=== PATIENT | male | born 1985 | race Caucasian/White ===

== ENCOUNTER 2025-01-28 21:22 | Inpatient (IN) | payer OTHER, SELFPAY ==
--- NOTE | 2025-01-28 | ECG_ITS ---
Test Reason : od Blood Pressure : */* mmHG Vent. Rate : 65 BPM Atrial Rate : 65 BPM P-R Int : 146 ms QRS Dur : 86 ms QT Int : 456 ms P-R-T Axes : 29 -3 18 degrees QTcB Int : 474 ms Normal sinus rhythm Normal ECG No previous ECGs available Referred By: Generic ED Physician Electronically Signed By: ASHELY ESTEBAN MD
[2025-01-28 21:37] VITALS: BP 128/84; BP 97/61; PULSE 77; RESP 18; TEMP 37.1; O2SAT 95; O2SAT 97; BMI 27.0
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
--- NOTE | 2025-01-28 22:08 | PC.NURSE ---
allegedly client is on methadone and didnt receive his dose today will attempt to verfiy in am.
[2025-01-28 23:00] VITALS: BP 90/46; PULSE 70; RESP 16; O2SAT 93
[2025-01-28 23:02] LABS: MANUAL DIFF FLAG NO
[2025-01-28 23:03] VITALS: BP 102/47; PULSE 65; RESP 10; TEMP 36.5; O2SAT 94
[2025-01-28 23:04] LABS: Basophils Absolute Auto 0.1 X10*3/uL (0.0-0.2); Basophils Percent Auto 1.1 % (0-2); Eosinophils Absolute Auto 0.4 X10*3/uL (0.0-0.4); Eosinophils Percent Auto 4.6 % (0-4); Hematocrit 34.5 % (42.0-52.0); Hemoglobin 11.5 g/dl (14.0-18.0); Imm Gran Abs Auto 0.02 X10*3/uL (0.00-0.03); Imm Gran Pct Auto 0.2 % (0.0-0.4); Lymphocytes Absolute Auto 4.1 X10*3/uL (1.2-4.9); Lymphocytes Percent Auto 48.4 % (20-40); Mean Corpuscular HGB Conc 33.3 g/dl (31.0-36.0); Mean Corpuscular Hemoglobin 29.3 pg (27.0-33.0); Mean Platelet Volume 8.2 fL (9.4-12.4); Monocytes Absolute Auto 0.6 X10*3/uL (0.1-1.2); Monocytes Percent Auto 7.6 % (2-11); Neutrophils Absolute Auto 3.2 x10*3/uL (2.0-8.3); Neutrophils Percent Auto 38.1 % (45-73); Platelet Count 336 X10*3/uL (160-400); Red Blood Count 3.92 X10*6/uL (4.60-5.80); Red Cell Distribution Width 14.6 % (11.0-16.0); White Blood Count 8.4 X10*3/uL (4.8-10.8)
--- NOTE | 2025-01-28 23:12 | PC.NURSE ---
Took over care from RN Lucía, pt brought over from the Pod, due to being lethargic. pt placed on bedside monitor. pt alert and able to respond to questions appropriately .
[2025-01-28 23:13] LABS: Amphetamine Screen Urine Not Detected (Not Detect); Barbiturates, Urine Not Detected (Not Detect); Benzodiazepines Screen Urine Not Detected (Not Detect); Buprenorphine Scr Not Detected (Not Detect); Cannabinoid Screen Urine Not Detected (Not Detect); Cocaine Screen Urine POSITIVE (Not Detect); Fentanyl, urine POSITIVE (Not Detect); Methadone Screen, Urine Positive (Not Detect); Opiate Screen Urine POSITIVE (Not Detect); Oxycodone Screen Urine Not Detected (Not Detect); Phencyclidine Screen Urine Not Detected (Not Detect)
[2025-01-28 23:16] LABS: Acetaminophen LAB < 3 mcg/mL (<30); Salicylate < 5.0 mg/dL (15-30)
[2025-01-28 23:17] LABS: Alanine Aminotransferase 37 U/L (0-40); Albumin Level 3.5 g/dL (3.5-5.0); Alkaline Phosphatase 79 U/L (39-117); Anion Gap 14 (12-20); Aspartate Amino Transferase 52 U/L (5-37); Bilirubin Total 0.5 mg/dL (0.0-1.0); Blood Urea Nitrogen 24 mg/dL (9-16); Calcium 8.1 mg/dL (8.4-10.2); Carbon Dioxide 23 mmol/L (22-29); Chloride 100 mmol/L (96-108); Creatinine Clr Calc Pharmacy 114.7; Estimated Glomerular Filt Rate > 60; Ethanol 15 mg/dL; Glucose Random 120 mg/dL (60-115); Potassium 3.7 mmol/L (3.3-5.1); Sodium 133 mmol/L (135-145); Total Protein 8.6 g/dL (6.5-8.0)
[2025-01-29] VITALS (9 sets, daily range): BP systolic 90–154; BP diastolic 53–88; PULSE 58–90; RESP 10–18; TEMP 36.3–36.8; O2SAT 94–98; BMI 27.1
--- NOTE | 2025-01-29 00:28 | PC.NURSE ---
blood pressure 88/[address] Juliana thakur, no new orders.
--- NOTE | 2025-01-29 01:24 | PC.NURSE ---
pt sleeping at this time.
--- NOTE | 2025-01-29 03:25 | PC.NURSE ---
pt is sleeping, pt still has a low bp, provider aware no new changes at this time.
--- NOTE | 2025-01-29 06:18 | PC.NURSE ---
pt blood pressure improved, pt a&o, pt taken back to pod by security.
--- NOTE | 2025-01-29 07:14 | HE.PHANOTE ---
METHADONE CONFIRMATION FORM PATIENT TAKES METHADONE 110 MG PO DAILY FROM [facility]. LAST DOSE ON 01/27 @ 0800
[2025-01-29] MEDS: methADONE HCl 20 MG/2 ML ORAL.CONC 110 MG PO (09:20)
--- NOTE | 2025-01-29 10:41 | MHC.CARE ---
[facility]
--- NOTE | 2025-01-29 10:45 | PC.NURSE ---
Pt ambulatory to restroom
--- NOTE | 2025-01-29 12:53 | PC.NURSE ---
Pt requesting his medication, unable to provide list, RN will call [facility].
[2025-01-29 13:23] LABS: Appearance Urine Clear; Color Urine Yellow; Glucose Urine UA Negative (Negative); Leukocyte Esterase Urine Negative (Negative); Nitrite Urine Negative (Negative); PH 5.5 (5.0-9.0); Urine Blood Negative (Negative); Urine Ketones Negative (Negative); Urine Protein Negative (Neg-Trace)
--- NOTE | 2025-01-29 14:21 | PC.NURSE ---
Medication list verified with [facility], Dr Hickey notified via [facility].
[2025-01-29] MEDS: Nicotine Polacrilex 2 MG GUM 4 MG BUCCAL (14:39)
[2025-01-29] MEDS: LORazepam 1 MG TABLET PO ×2 (14:39→19:09)
[2025-01-29] MEDS: Acetaminophen 325 MG TABLET 650 MG PO ×2 (14:39→20:42)
[2025-01-29] MEDS: Folic Acid 1 MG TABLET PO (14:40)
[2025-01-29] MEDS: Thiamine HCL 100 MG TABLET PO (14:40)
--- NOTE | 2025-01-29 14:53 | PC.NURSE ---
Report to EN[facility] Vargas on M[facility].
[2025-01-29] MEDS: LORazepam 1 MG TABLET 2 MG PO ×2 (17:01→21:13)
--- NOTE | 2025-01-29 18:49 | PC.ADMIT ---
Mark is a 39 yr old male admitted to today on a CV. He was brought to the ED, by ambulance, after overdosing on fentanyl & crack/cocaine.? Mark admits that his overdose was a suicide attempt.? He currently is endorsing SI but states he feels safe here & wants help. Mark is able to contract for safety.? He reports taking all his medications as prescribed. Mark rates both his anxiety & depression 09/05. Pt reports drinking up to a gallon of vodka per day.? Mark endorses past trauma?but doesn?t want to discuss it at this time.? He denies HI/AVH.? Skin check done, he has many old scars & multiple random small, non-draining, sores on different parts of his body (see skin assessment).? He reports that he lives alone & recently started renting a new room, which he is unhappy with. He is feeling generally unwell and is getting prn Ativan per CIWA scores. ? Mark? was oriented to the unit & placed on 15min safety checks.
[2025-01-29] MEDS: cloNIDine HCL 0.1 MG TABLET PO (21:13)
[2025-01-29] MEDS: Gabapentin 600 MG TABLET PO (21:13)
[2025-01-29] MEDS: hydrOXYzine HCL 25 MG TABLET PO (21:13)
[2025-01-30] VITALS (8 sets, daily range): BP systolic 111–121; BP diastolic 65–89; PULSE 77–113; RESP 14–16; TEMP 36.4–36.6; O2SAT 94–96; BMI 25.4
[2025-01-30] MEDS: LORazepam 1 MG TABLET 2 MG PO ×5 (03:41→19:31)
[2025-01-30] MEDS: Levothyroxine Sodium 100 MCG TABLET PO (06:50)
[2025-01-30] MEDS: methADONE HCl 20 MG/2 ML ORAL.CONC 110 MG PO (07:56)
[2025-01-30] MEDS: Gabapentin 600 MG TABLET PO ×3 (08:47→20:35)
[2025-01-30] MEDS: Thiamine HCL 100 MG TABLET PO (08:47)
[2025-01-30] MEDS: OXcarbazepine 300 MG TABLET PO ×2 (08:47→20:34)
[2025-01-30] MEDS: Folic Acid 1 MG TABLET PO (08:47)
[2025-01-30] MEDS: buPROPion HCl XL 150 MG TAB.ER.24H PO (08:47)
[2025-01-30] MEDS: Emtricitabin/Tenofovir DF 200/300 TABLET 1 TAB PO (08:48)
[2025-01-30] MEDS: Nicotine 21 MG PATCH.TD24 TRANSDERMA (08:55)
[2025-01-30] MEDS: Dicyclomine HCl 10 MG CAPSULE 20 MG PO ×3 (08:55→20:43)
[2025-01-30] MEDS: Acetaminophen 325 MG TABLET 650 MG PO ×3 (08:55→20:43)
[2025-01-30] MEDS: Nicotine Polacrilex 2 MG GUM 4 MG BUCCAL ×3 (08:56→19:34)
[2025-01-30] MEDS: hydrOXYzine HCL 25 MG TABLET PO ×2 (09:39→20:34)
[2025-01-30] MEDS: diazePAM 5 MG TABLET 10 MG PO ×3 (10:04→20:35)
[2025-01-30] MEDS: cloNIDine HCL 0.1 MG TABLET PO ×2 (11:04→20:35)
--- NOTE | 2025-01-30 12:34 | MHC.RECOVRN ---
Received Addiction Medicine consult for opiate withdrawal. Pt currently receiving 110 mg methadone daily. Spoke with provider, requested COWS to evaluate for withdrawal symptoms.
--- NOTE | 2025-01-30 13:02 | MHC.RECOVRN ---
Met with pt, along with pts RN, in 511-2. Pt laying in bed, eyes closed, wakes to voice. Eyelids appear heavy at times but pt is able to engage in conversation. Pt reports using alcohol, 1/2 gallon [place] vodka daily. Reports history of withdrawal seizure, timeline unclear regarding when last seizure occurred. Pt reports he has been hospitalized in the past for alcohol withdrawal, in addition to ATS admissions. Pt reports opiate use, heroin/fentanyl, 4 grams daily, IV. Pt reports using cociane when it's around, INH and IN. Pt currently goes to [facility] for methadone, on 110 mg daily. Pt reports he has been on 110 mg for a short time as he is titrating. Pt reports he feels withdrawal is more alcohol than opiate. Pt does appear to have more alcohol withdrawal symptoms than opioid withdrawal symptoms. Pt currently receiving medications to manage withdrawal including Valium, lorazepam, Bentyl, hydroxyzine, and clonidine. Pts CIWA scores today have been 13 and 12 with medication. Pt concerned regarding being kicked out, reassured pt. Pt denies questions or concerns at this time. Discussed with RN and provider, recommend speaking with hospitalist if CIWA scores remain indicative of moderate to severe withdrawal.
--- NOTE | 2025-01-30 13:11 | MHC.RECOVRN ---
AUDIT-C Brief Intervention Pt had positive screen for unhealthy alcohol use on admission. Attempted to meet with pt to discuss alcohol use and offer resources, pt declined.
--- NOTE | 2025-01-30 13:23 | P.HPPS_ITS ---
HPI Date of Service: 01/30/25 Chief Complaint: depressed/ SI Sources of Information: patient interviewed, chart reviewed and crisis/core team assessment reviewed Additional Sources of Information: Seen 10:15am 01/30/25 HPI Subjective Notes: Lin Warning and Conditional Voluntary Healthcare Proxy: No Guardianship: No Medical Problems Affecting Mental Status: No Narrative: 39 yo male, history of PTSD, depression, opiate use disorder on methadone, alcohol use disorder, cocaine use disorder, to ER from [facility] via EMS. Pt had an OD of fentanyl requiring Narcan and use of crack prior to admit. He endorsed SI to crisis. Today, he is in very active withdrawal and is a poor historian. He asks for Ritalin or Adderall. Reports drinking 1/2-1 gallon of vodka daily for over 3 years, other substance amounts vary. Pt attends [facility] for methadone. Pt endorses SI but reports he wants help and states he feels safe on the unit. Addiction consult and hospitalist consult for need for phenobarbital detox were placed. Past Psychiatric History: IP: Affirms OP: No current alliances Trials: Wellbutrin, Ritalin, Adderall, Gabapentin, Hydroxyzine Medical Evaluation Reviewed: Yes [facility] Medical History (Updated 01/31/25 @ 05:04 by Isabel Mcintyre, COAT FINISHER) Opioid use disorder, severe, on maintenance therapy Alcohol use disorder, severe, dependence Recurrent major depression PTSD (post-traumatic stress disorder) Family History: Addiction, Mental Health Social History: Born in [place]. Only child. Raised by grandmother. He did not completed GED or high school Never , no children. Denies current employment Substance History: Tox positive for Methadone, Fentanyl, Cocaine, Reports use since adolescence. Hx of multiple interventions, including in pt, rehab Hx of [place] 35 Trauma History: affirms, in childhood Diagnostics Vital Signs (24Hr): Vital Signs - 24 hr 01/29/25 15:31 01/29/25 18:38 01/29/25 19:54 Temperature 98.2 F 98 F 98.1 F Pulse Rate 62 58 73 Respiratory Rate 18 16 Blood Pressure 107/63 102/63 97/55 L Pulse Oximetry 94 98 97 Oxygen Delivery Method Room Air Room Air Room Air 01/30/25 03:39 01/30/25 08:00 01/30/25 08:49 Temperature 97.6 F Pulse Rate 82 113 H 77 Respiratory Rate 16 14 Blood Pressure 119/82 116/75 111/67 Pulse Oximetry 94 Oxygen Delivery Method Room Air Room Air 01/30/25 11:04 01/30/25 12:38 Temperature 98 F Pulse Rate 86 Respiratory Rate 14 Blood Pressure 115/65 115/65 Pulse Oximetry 96 Oxygen Delivery Method Room Air BMI result Body Mass Index 25.4 Labs 01/28/25 22:54 01/28/25 22:54 Labs: Laboratory Results - last 48 hr 01/28/25 01/28/25 22:54 22:55 WBC 8.4 RBC 3.92 L Hgb 11.5 L Hct 34.5 L MCV 88.0 MCH 29.3 MCHC 33.3 RDW 14.6 Plt Count 336 MPV 8.2 L Immature Gran % (Auto) 0.2 Neut % (Auto) 38.1 L Lymph % (Auto) 48.4 H [place] % (Auto) 7.6 Eos % (Auto) 4.6 H Baso % (Auto) 1.1 Lymph # (Auto) 4.1 [place] # (Auto) 0.6 Eos # (Auto) 0.4 Baso # (Auto) 0.1 Abs Immat Gran (auto) 0.02 Absolute Neuts (auto) 3.2 Absolute Nucleated RBC 0.000 Nucleated RBC % (auto) 0.0 Sodium 133 L Potassium 3.7 Chloride 100 Carbon Dioxide 23 Anion Gap 14 BUN 24 H Creatinine 0.78 Estim Creat Clear Calc 114.7 Estimated GFR > 60 Random Glucose 120 H Calcium 8.1 L Total Bilirubin 0.5 AST 52 H ALT 37 Alkaline Phosphatase 79 Total Protein 8.6 H Albumin 3.5 Urine Color Yellow Urine Appearance Clear Urine pH 5.5 Ur Specific [place] 1.010 Urine Protein Negative Urine Glucose (UA) Negative Urine Ketones Negative Urine Blood Negative Urine Nitrite Negative Ur Leukocyte Esterase Negative Salicylates < 5.0 L Urine Opiates Screen POSITIVE H Ur Buprenorphine Scrn Not Detected Ur Oxycodone Screen Not Detected Urine Methadone Screen Positive H Urine Fentanyl Screen POSITIVE H Acetaminophen < 3 Ur Barbiturates Screen Not Detected Ur Phencyclidine Scrn Not Detected Ur Amphetamines Screen Not Detected U Benzodiazepines Scrn Not Detected Urine Cocaine Screen POSITIVE H U Marijuana (THC) Screen Not Detected Ethyl Alcohol 15 Meds/Allergies Meds Home Medications ?Medication ?Instructions ?Recorded ?Confirmed ?Type baclofen 10 mg tablet 10 mg PO 3XD PRN Pain 01/29/25 01/29/25 History bupropion HCl 150 mg 24 hr tablet, 150 mg PO DAILY 01/29/25 01/29/25 History extended release clonidine HCl 0.1 mg tablet 0.1 mg PO BID PRN Insomnia 01/29/25 01/29/25 History dicyclomine 20 mg tablet 20 mg PO BID PRN Diarrhea 01/29/25 01/29/25 History emtricitabine 200 mg-tenofovir 1 tab PO DAILY 01/29/25 01/29/25 History disoproxil fumarate 300 mg tablet gabapentin 600 mg tablet 600 mg PO 3XD PRN Pain 01/29/25 01/29/25 History hydroxyzine HCl 25 mg tablet 25 mg PO BID PRN Anxiety 01/29/25 01/29/25 History ibuprofen 600 mg tablet 600 mg PO 3XD PRN Pain 01/29/25 01/29/25 History levothyroxine 100 mcg tablet 100 mcg PO DAILY 01/29/25 01/29/25 History methadone 110 mg PO DAILY 01/29/25 01/29/25 History nicotine (polacrilex) 4 mg gum 4 mg PO QID PRN Nicotine Cravings 01/29/25 01/29/25 History oxcarbazepine 300 mg tablet 300 mg PO BID 01/29/25 01/29/25 History quetiapine 50 mg tablet 50 mg PO BEDTIME PRN Insomnia 01/29/25 01/29/25 History Allergies Allergies Allergy/AdvReac Type Severity Reaction Status Date / Time No Known Allergies Allergy Verified 01/28/25 21:46 Mental Status Exam Mental Status Exam Patient Appearance: Fatigued and Disheveled Patient Orientation: Person, Place and Situation Level of Consciousness: Sedated and Lethargic Patient Behavior: Guarded, Sedated, Fatigued, Distractible, Isolative and Poor Eye Contact Mood Description: Withdrawn Affect Description: Withdrawn Patient Cognition Impaired: No Ability to Follow Directions: Fair Speech Pattern: Spontaneous Speech Memory Description: Remote Impaired Hallucinations: None Delusions: Not Present Perceptual Disturbances: Depersonalization and Derealization Thought Process: Slowed Thinking Thought Content: positive for Slowed Thinking, positive for Tangential and positive for Suicidal Ideation Depressive Symptoms: Hopelessness, Unhappiness and Thoughts of /Suicide Judgement: Fair Assessment & Plan Assessment & Plan (1) PTSD (post-traumatic stress disorder): Status: Acute Code(s): F43.10 - Post-traumatic stress disorder, unspecified (2) Recurrent major depression: Status: Acute Code(s): F33.9 - Major depressive disorder, recurrent, unspecified (3) Alcohol use disorder, severe, dependence: Status: Acute Code(s): F10.20 - Alcohol dependence, uncomplicated (4) Opioid use disorder, severe, on maintenance therapy: Status: Acute Code(s): F11.20 - Opioid dependence, uncomplicated Plan Admit, CV, 15 minute checks Hospitalist consult-?need for phenobarbital protocol for withdrawal from alcohol Addiction Consult Valium 10 mg tid Ativan 1-3 mg q2 prn alcohol withdrawal BMP, B12,Folate, FBS, TSH, Lipid Panel, A1C Collateral contact Diagnostics as above and prn Encourage full milieu Discharge planning Patient educated on: medication risk/benefits, substance abuse, therapeutic strategies and medical condition Reason for continued inpatient stay Substantial Risk for: med/psych decompensation Statement Statement: I have reviewed the history and physical and performed a pertinent examination on my patient. No changes have occurred unless specified. If the History and Physical was not performed prior to admission, the Hospitalist's service will be consulted for completing the admission physical. Time Spent With Patient Time: Total time managing care of this patient today ____ minutes.
[2025-01-30] MEDS: Milk of Magnesia 30 ML ORAL.SUSP PO (16:06)
[2025-01-31] VITALS: PULSE 85
[2025-01-31] MEDS: LORazepam 1 MG TABLET 2 MG PO ×2 (00:10→13:10)
[2025-01-31 08:00] VITALS: PULSE 80
[2025-01-31] MEDS: methADONE HCl 20 MG/2 ML ORAL.CONC 110 MG PO (08:09)
[2025-01-31 08:42] VITALS: BP 109/63; PULSE 80; RESP 16; TEMP 36.4; O2SAT 95
[2025-01-31] MEDS: OXcarbazepine 300 MG TABLET PO ×2 (08:54→21:02)
[2025-01-31] MEDS: Emtricitabin/Tenofovir DF 200/300 TABLET 1 TAB PO (08:54)
[2025-01-31] MEDS: Gabapentin 600 MG TABLET PO ×3 (08:54→21:02)
[2025-01-31] MEDS: Levothyroxine Sodium 100 MCG TABLET PO (08:54)
[2025-01-31] MEDS: diazePAM 5 MG TABLET 10 MG PO (08:54)
[2025-01-31] MEDS: buPROPion HCl XL 150 MG TAB.ER.24H PO (08:54)
[2025-01-31] MEDS: Thiamine HCL 100 MG TABLET PO (08:54)
[2025-01-31] MEDS: Folic Acid 1 MG TABLET PO (08:54)
[2025-01-31] MEDS: LORazepam 1 MG TABLET PO ×3 (08:56→21:02)
[2025-01-31] MEDS: Nicotine 21 MG PATCH.TD24 TRANSDERMA (09:36)
[2025-01-31] MEDS: Nicotine Polacrilex 2 MG GUM 4 MG BUCCAL ×2 (09:38→22:01)
[2025-01-31] MEDS: Dicyclomine HCl 10 MG CAPSULE 20 MG PO ×2 (09:44→16:46)
[2025-01-31] MEDS: Baclofen 10 MG TABLET PO ×2 (09:44→16:46)
[2025-01-31 11:20] VITALS: BP 105/67
[2025-01-31] MEDS: OLANZapine 5 MG TABLET PO ×2 (11:20→22:02)
[2025-01-31] MEDS: cloNIDine HCL 0.1 MG TABLET PO ×2 (11:20→22:01)
--- NOTE | 2025-01-31 11:28 | PM.EVENT ---
Event Note Date of Service: 01/31/25 Event Note: Pt is a 39-year-old male H significant for polysubstance use disorder, alcohol use disorder, and anxiety who was admitted to [facility] Psychiatric unit for increased anxiety with SI. Hospitalist consult for evaluation of alcohol withdrawal. Pt seen and evaluated where he endorses increased anxiety, photophobia, nausea, headache, tactile disturbances, diaphoresis, and tremors. Reports has been drinking 0.5 gal of vodka daily with last drink a few days ago. Reports hx of withdrawal seizures. Physical exam more benign. Initially pt has minor tremors of upper extremities when holding his hands outstretched. However, no tremors appreciated when testing for upper extremity strength and [id number] coordination. Pt does not appear diaphoretic or anxious. pt instead appears somnolent though arousable and answering questions appropriately. Given clinical picture, would not suggest switching pt to phenobarb protocol, as Ativan is also first-line monotherapy for treating alcohol withdrawal. If anything, pt appears overly sedated and would suggest continuing Ativan taper. If possible, would avoid additional Ativan doses due to somnolence and concern for over sedation. Time Spent With Patient Time: Total time managing care of this patient today ____ minutes.
--- NOTE | 2025-01-31 14:01 | MHC.RECOVRN ---
Pt originally seen by t/w for consult for opiate withdrawal. Pt had not been exhibiting opiate withdrawal, rather more alcohol withdrawal when seen by t/w on 01/30. Pt seen by hospitalist today for elevated CIWA scores. Recommendation to continue Ativan taper. Addiction signing off at this time. Please reconsult if needed.
[2025-01-31] MEDS: diazePAM 5 MG TABLET 15 MG PO ×2 (15:10→21:03)
--- NOTE | 2025-01-31 15:46 | HO.PSYCHPN ---
Subjective Subjective Date of Service: 01/31/25 Reason For Visit: depressed/ SI Subjective Notes: Conditional Voluntary Healthcare Proxy: No Guardianship: No Medical Problems Affecting Mental Status: No Interim History: Detox progressing. Sedate today. Sleeping when interview attempted. Team reports detox is progressing well, pt is med seeking at times. As a result with begin to decrease. Decrease of Valium 20 to 15 tid and decrease of prn Ativan Medication Compliance: Yes Side effects from medications: No Attending Groups: No Review of Systems Acute medical concerns: No Medical Review of Systems: unchanged Review of Systems Review of Systems detox progressing Mental Status Exam Mental Status Exam Patient Behavior: Asleep Diagnostics Vital Signs (24Hr): Vital Signs - 24 hr 01/30/25 16:02 01/30/25 20:00 01/30/25 20:35 Temperature 97.9 F 98 F Pulse Rate 98 92 Respiratory Rate 16 16 Blood Pressure 115/65 121/65 120/89 Pulse Oximetry 96 96 Oxygen Delivery Method Room Air Room Air 01/31/25 08:42 01/31/25 11:20 Temperature 97.6 F Pulse Rate 80 Respiratory Rate 16 Blood Pressure 109/63 105/67 Pulse Oximetry 95 Oxygen Delivery Method Room Air BMI result Body Mass Index 25.4 Labs 01/28/25 22:54 01/28/25 22:54 Medications Medications Current Medications Acetaminophen (Acetaminophen 325 Mg Tablet) 650 mg PO Q6H PRN PRN Reason: Headache/Pain, Scale 1-10 Last Admin: 01/30/25 20:43 Dose: 650 mg Al Hydroxide/Mg Hydroxide (Magnesium Hydrox/Alum Hydrox 30 Ml Oral.Susp) 30 ml PO Q6H PRN PRN Reason: Heartburn/Nausea Baclofen (Baclofen 10 Mg Tablet) 10 mg PO TID PRN PRN Reason: withdrawal discomfort Last Admin: 01/31/25 09:44 Dose: 10 mg Bupropion HCl (Bupropion Hcl Xl 150 Mg Tab.Er.24h) 150 mg PO DAILY [facility] Last Admin: 01/31/25 08:54 Dose: 150 mg Clonidine HCl (Clonidine Hcl 0.1 Mg Tablet) 0.1 mg PO BID PRN; Protocol PRN Reason: Withdrawal Last Admin: 01/31/25 11:20 Dose: 0.1 mg Diazepam (Diazepam 5 Mg Tablet) 15 mg PO TID [facility] Last Admin: 01/31/25 15:10 Dose: 15 mg Dicyclomine HCl (Dicyclomine Hcl 10 Mg Capsule) 20 mg PO BID PRN PRN Reason: Diarrhea Last Admin: 01/31/25 09:44 Dose: 20 mg Emtricitabine/Tenofovir (Emtricitabin/Tenofovir Df 200/300 Tablet) 1 tab PO DAILY [facility] Last Admin: 01/31/25 08:54 Dose: 1 tab Folic Acid (Folic Acid 1 Mg Tablet) 1 mg PO DAILY [facility] Last Admin: 01/31/25 08:54 Dose: 1 mg Gabapentin (Gabapentin 600 Mg Tablet) 600 mg PO TID [facility] Last Admin: 01/31/25 15:11 Dose: 600 mg Hydroxyzine HCl (Hydroxyzine Hcl 25 Mg Tablet) 25 mg PO Q6H PRN PRN Reason: mild anxiety Last Admin: 01/30/25 20:34 Dose: 25 mg Levothyroxine Sodium (Levothyroxine Sodium 100 Mcg Tablet) 100 mcg PO DAILY@0600 [facility] Last Admin: 01/31/25 08:54 Dose: 100 mcg Magnesium Hydroxide (Milk Of Magnesia 30 Ml Oral.Susp) 30 ml PO DAILY PRN PRN Reason: Constipation Last Admin: 01/30/25 16:06 Dose: 30 ml Methadone HCl (Methadone Hcl 20 Mg/2 Ml Oral.Conc) 110 mg PO DAILY@0800 [facility] Last Admin: 01/31/25 08:09 Dose: 110 mg Nicotine (Nicotine 21 Mg Patch.Td24) 21 mg TRANSDERMA DAILY PRN PRN Reason: smoking cessation Last Admin: 01/31/25 09:36 Dose: 21 mg Nicotine Polacrilex (Nicotine Polacrilex 2 Mg Gum) 4 mg BUCCAL Q2H PRN PRN Reason: Nicotine Cravings Last Admin: 01/31/25 09:38 Dose: 4 mg Olanzapine (Olanzapine 5 Mg Tablet) 5 mg PO TID PRN PRN Reason: agitation Last Admin: 01/31/25 11:20 Dose: 5 mg Oxcarbazepine (Oxcarbazepine 300 Mg Tablet) 300 mg PO BID [facility] Last Admin: 01/31/25 08:54 Dose: 300 mg Quetiapine Fumarate (Quetiapine Fumarate 50 Mg Tablet) 50 mg PO BEDTIME PRN PRN Reason: Insomnia Thiamine HCl (Thiamine Hcl 100 Mg Tablet) 100 mg PO DAILY [facility] Last Admin: 01/31/25 08:54 Dose: 100 mg Trazodone HCl (Trazodone Hcl 50 Mg Tablet) 50 mg PO BEDTIME MRX1 PRN PRN Reason: Insomnia Allergies Allergies Allergy/AdvReac Type Severity Reaction Status Date / Time No Known Allergies Allergy Verified 01/28/25 21:46 Assessment & Plan Assessment & Plan (1) PTSD (post-traumatic stress disorder): Status: Acute Code(s): F43.10 - Post-traumatic stress disorder, unspecified (2) Recurrent major depression: Status: Acute Code(s): F33.9 - Major depressive disorder, recurrent, unspecified (3) Alcohol use disorder, severe, dependence: Status: Acute Code(s): F10.20 - Alcohol dependence, uncomplicated (4) Opioid use disorder, severe, on maintenance therapy: Status: Acute Code(s): F11.20 - Opioid dependence, uncomplicated Plan Admit, CV, 15 minute checks Hospitalist consult-?need for phenobarbital protocol for withdrawal from alcohol Addiction Consult Valium 10 mg tid Ativan 1-3 mg q2 prn alcohol withdrawal BMP, B12,Folate, FBS, TSH, Lipid Panel, A1C Collateral contact Diagnostics as above and prn Encourage full milieu Discharge planning Valium decrease from 20 mg tid to 15 mg tid Ativan prn decrease to 1 mg q 4h prn withdrawal sx. Reason for continued inpatient stay Substantial Risk for: med/psych decompensation Time Spent With Patient Time: Total time managing care of this patient today ____ minutes.
[2025-01-31 16:00] VITALS: PULSE 72
[2025-01-31] MEDS: Acetaminophen 325 MG TABLET 650 MG PO (16:46)
[2025-01-31] MEDS: hydrOXYzine HCL 25 MG TABLET PO (16:46)
[2025-01-31 22:01] VITALS: BP 115/71
[2025-01-31] MEDS: QUEtiapine Fumarate 50 MG TABLET PO (22:02)
[2025-02-01] VITALS: PULSE 68
--- NOTE | 2025-02-01 06:22 | PC.NURSE ---
Patient approached this technical publications writer shortly after 2200 and claimed he had not received his HS Valium 15 mg po. This technical publications writer showed patient the medication had been scanned and was given along with his other HS medications. Patient finally decided he had taken them. May need to monitor meds with two RN's.
[2025-02-01 08:00] VITALS: PULSE 108; O2SAT 98
[2025-02-01] MEDS: methADONE HCl 20 MG/2 ML ORAL.CONC 110 MG PO (08:00)
[2025-02-01] MEDS: buPROPion HCl XL 150 MG TAB.ER.24H PO (08:25)
[2025-02-01] MEDS: Emtricitabin/Tenofovir DF 200/300 TABLET 1 TAB PO (08:26)
[2025-02-01] MEDS: Levothyroxine Sodium 100 MCG TABLET PO (08:26)
[2025-02-01] MEDS: Gabapentin 600 MG TABLET PO ×3 (08:26→21:09)
[2025-02-01] MEDS: Thiamine HCL 100 MG TABLET PO (08:26)
[2025-02-01] MEDS: diazePAM 5 MG TABLET 15 MG PO (08:26)
[2025-02-01] MEDS: Folic Acid 1 MG TABLET PO (08:26)
[2025-02-01] MEDS: OXcarbazepine 300 MG TABLET PO ×2 (08:26→21:09)
--- NOTE | 2025-02-01 10:27 | P.PNPSI_ITS ---
Subjective Subjective Date of Service: 02/01/25 Reason For Visit: depressed/ SI Subjective Notes: Conditional Voluntary Interim History: Patient was seen and discussed in rounds today. Records and plans were reviewed. He continues to endorse depression, anxiety. He is doing well with his CIWA/COWS protocol. Because of question of possible Ativan seeking was put on Valium 15 mg t.i.d. but this morning he was extremely drowsy and some medications were held. I decrease the Valium to 10 mg t.i.d. / to be held if too drowsy. He also has been put on Suboxone. Review of Systems Review of Systems Drowsiness Yes Unobtainable due to mental status Mental Status Exam Mental Status Exam Narrative: in today's visit he is extremely drowsy and unable to be examined formally. Diagnostics Vital Signs (24Hr): Vital Signs - 24 hr 01/31/25 11:20 01/31/25 22:01 02/01/25 08:00 Pulse Rate 108 H Blood Pressure 105/67 115/71 Pulse Oximetry 98 Oxygen Delivery Method Room Air BMI result Body Mass Index 25.4 Labs 01/28/25 22:54 01/28/25 22:54 Medications Medications Current Medications Acetaminophen (Acetaminophen 325 Mg Tablet) 650 mg PO Q6H PRN PRN Reason: Headache/Pain, Scale 1-10 Last Admin: 01/31/25 16:46 Dose: 650 mg Al Hydroxide/Mg Hydroxide (Magnesium Hydrox/Alum Hydrox 30 Ml Oral.Susp) 30 ml PO Q6H PRN PRN Reason: Heartburn/Nausea Baclofen (Baclofen 10 Mg Tablet) 10 mg PO TID PRN PRN Reason: withdrawal discomfort Last Admin: 01/31/25 16:46 Dose: 10 mg Bupropion HCl (Bupropion Hcl Xl 150 Mg Tab.Er.24h) 150 mg PO DAILY [facility] Last Admin: 02/01/25 08:25 Dose: 150 mg Clonidine HCl (Clonidine Hcl 0.1 Mg Tablet) 0.1 mg PO BID PRN; Protocol PRN Reason: Withdrawal Last Admin: 01/31/25 22:01 Dose: 0.1 mg Diazepam (Diazepam 5 Mg Tablet) 15 mg PO TID [facility] Last Admin: 02/01/25 08:26 Dose: 15 mg Dicyclomine HCl (Dicyclomine Hcl 10 Mg Capsule) 20 mg PO BID PRN PRN Reason: Diarrhea Last Admin: 01/31/25 16:46 Dose: 20 mg Emtricitabine/Tenofovir (Emtricitabin/Tenofovir Df 200/300 Tablet) 1 tab PO DAILY [facility] Last Admin: 02/01/25 08:26 Dose: 1 tab Folic Acid (Folic Acid 1 Mg Tablet) 1 mg PO DAILY [facility] Last Admin: 02/01/25 08:26 Dose: 1 mg Gabapentin (Gabapentin 600 Mg Tablet) 600 mg PO TID [facility] Last Admin: 02/01/25 08:26 Dose: 600 mg Hydroxyzine HCl (Hydroxyzine Hcl 25 Mg Tablet) 25 mg PO Q6H PRN PRN Reason: mild anxiety Last Admin: 01/31/25 16:46 Dose: 25 mg Levothyroxine Sodium (Levothyroxine Sodium 100 Mcg Tablet) 100 mcg PO DAILY@0600 [facility] Last Admin: 02/01/25 08:26 Dose: 100 mcg Lorazepam (Lorazepam 1 Mg Tablet) 1 mg PO Q4H PRN PRN Reason: withdrawal sx Last Admin: 01/31/25 21:02 Dose: 1 mg Magnesium Hydroxide (Milk Of Magnesia 30 Ml Oral.Susp) 30 ml PO DAILY PRN PRN Reason: Constipation Last Admin: 01/30/25 16:06 Dose: 30 ml Methadone HCl (Methadone Hcl 20 Mg/2 Ml Oral.Conc) 110 mg PO DAILY@0800 [facility] Last Admin: 02/01/25 08:00 Dose: 110 mg Nicotine (Nicotine 21 Mg Patch.Td24) 21 mg TRANSDERMA DAILY PRN PRN Reason: smoking cessation Last Admin: 01/31/25 09:36 Dose: 21 mg Nicotine Polacrilex (Nicotine Polacrilex 2 Mg Gum) 4 mg BUCCAL Q2H PRN PRN Reason: Nicotine Cravings Last Admin: 01/31/25 22:01 Dose: 4 mg Olanzapine (Olanzapine 5 Mg Tablet) 5 mg PO TID PRN PRN Reason: agitation Last Admin: 01/31/25 22:02 Dose: 5 mg Oxcarbazepine (Oxcarbazepine 300 Mg Tablet) 300 mg PO BID [facility] Last Admin: 02/01/25 08:26 Dose: 300 mg Quetiapine Fumarate (Quetiapine Fumarate 50 Mg Tablet) 50 mg PO BEDTIME PRN PRN Reason: Insomnia Last Admin: 01/31/25 22:02 Dose: 50 mg Thiamine HCl (Thiamine Hcl 100 Mg Tablet) 100 mg PO DAILY [facility] Last Admin: 02/01/25 08:26 Dose: 100 mg Trazodone HCl (Trazodone Hcl 50 Mg Tablet) 50 mg PO BEDTIME MRX1 PRN PRN Reason: Insomnia Allergies Allergies Allergy/AdvReac Type Severity Reaction Status Date / Time No Known Allergies Allergy Verified 01/28/25 21:46 Assessment & Plan Assessment & Plan (1) PTSD (post-traumatic stress disorder): Status: Acute Code(s): F43.10 - Post-traumatic stress disorder, unspecified (2) Recurrent major depression: Status: Acute Code(s): F33.9 - Major depressive disorder, recurrent, unspecified (3) Alcohol use disorder, severe, dependence: Status: Acute Code(s): F10.20 - Alcohol dependence, uncomplicated (4) Opioid use disorder, severe, on maintenance therapy: Status: Acute Code(s): F11.20 - Opioid dependence, uncomplicated Plan Admit, CV, 15 minute checks Hospitalist consult-?need for phenobarbital protocol for withdrawal from alcohol Addiction Consult Valium 10 mg tid Ativan 1-3 mg q2 prn alcohol withdrawal BMP, B12,Folate, FBS, TSH, Lipid Panel, A1C Collateral contact Diagnostics as above and prn Encourage full milieu Discharge planning Valium decrease from 20 mg tid to 15 mg tid Ativan prn decrease to 1 mg q 4h prn withdrawal sx. 02/01/25: Continue current plans and regimen . Decrease Valium to 10 mg t.i.d. Patient educated on: medication risk/benefits Reason for continued inpatient stay Substantial Risk for: med/psych decompensation Time Spent With Patient Time: Total time managing care of this patient today ____ minutes.
[2025-02-01] MEDS: diazePAM 5 MG TABLET 10 MG PO ×2 (14:52→21:09)
[2025-02-01 15:45] LABS: Influenza A PCR NEGATIVE (Negative); Influenza B PCR NEGATIVE (Negative); Resp Syncy Virus RNA Qual PCR NEGATIVE (Negative); SARS COV2 PCR INHOUSE POSITIVE (Negative)
[2025-02-01 16:00] VITALS: PULSE 97
[2025-02-01] MEDS: LORazepam 1 MG TABLET PO ×2 (16:13→21:10)
[2025-02-01 18:28] VITALS: BP 116/78
[2025-02-01] MEDS: cloNIDine HCL 0.1 MG TABLET PO (18:28)
[2025-02-01 19:44] VITALS: BP 123/91; PULSE 99; RESP 16; TEMP 36.1; O2SAT 94
[2025-02-01] MEDS: Acetaminophen 325 MG TABLET 650 MG PO (21:09)
[2025-02-01] MEDS: Nicotine Polacrilex 2 MG GUM 4 MG BUCCAL (21:10)
[2025-02-02] VITALS: PULSE 82
[2025-02-02 08:21] VITALS: BP 111/77; PULSE 96; TEMP 36.2; O2SAT 94
[2025-02-02] MEDS: buPROPion HCl XL 150 MG TAB.ER.24H PO (08:30)
[2025-02-02] MEDS: OXcarbazepine 300 MG TABLET PO ×2 (08:30→21:10)
[2025-02-02] MEDS: Levothyroxine Sodium 100 MCG TABLET PO (08:30)
[2025-02-02] MEDS: Gabapentin 600 MG TABLET PO ×3 (08:30→21:10)
[2025-02-02] MEDS: Emtricitabin/Tenofovir DF 200/300 TABLET 1 TAB PO (08:30)
[2025-02-02] MEDS: Thiamine HCL 100 MG TABLET PO (08:31)
[2025-02-02] MEDS: Folic Acid 1 MG TABLET PO (08:31)
[2025-02-02] MEDS: methADONE HCl 20 MG/2 ML ORAL.CONC 110 MG PO (08:35)
[2025-02-02 08:45] VITALS: PULSE 96
[2025-02-02] MEDS: cloNIDine HCL 0.1 MG TABLET PO ×2 (08:56→23:08)
[2025-02-02] MEDS: Baclofen 10 MG TABLET PO ×2 (08:56→15:24)
[2025-02-02] MEDS: Acetaminophen 325 MG TABLET 650 MG PO ×3 (08:56→21:22)
[2025-02-02] MEDS: Nicotine 21 MG PATCH.TD24 TRANSDERMA (08:56)
--- NOTE | 2025-02-02 09:23 | HO.PSYCHPN ---
Subjective Subjective Date of Service: 02/02/25 Reason For Visit: depressed/ SI Subjective Notes: Conditional Voluntary Interim History: Patient was seen and discussed in rounds today. Records and plans were reviewed. He continues to endorse depression, anxiety. He is doing well with his CIWA/COWS protocol. He has tested positive for COVID. He is more alert today after the decrease of Valium to 10 mg. Continues to be disorganized. No behavioral issues. No SI.. Medication Compliance: Yes Side effects from medications: No Review of Systems Review of Systems Disorganized thinking Yes all other systems are reviewed and are negative Mental Status Exam Mental Status Exam Narrative: In today's visit he is drowsy, oriented to person and somewhat to place. Speech is soft-spoken. Moderate eye contact. Affect is constricted and subdued. No acute signs of psychosis. Denies AVH. No SI. Cognitively continues to be disorganized. Judgment is impaired. Diagnostics Vital Signs (24Hr): Vital Signs - 24 hr 02/01/25 18:28 02/01/25 19:44 02/02/25 08:21 Temperature 96.9 F 97.1 F Pulse Rate 99 96 Respiratory Rate 16 Blood Pressure 116/78 123/91 H 111/77 Pulse Oximetry 94 94 Oxygen Delivery Method Room Air Room Air BMI result Body Mass Index 25.4 Labs 01/28/25 22:54 01/28/25 22:54 Labs: Laboratory Results - last 48 hr 02/01/25 14:57 Influenza Type A (PCR) NEGATIVE Influenza Type B (PCR) NEGATIVE RSV RNA Qual (PCR) NEGATIVE SARS-CoV-2 RNA (RT-PCR) POSITIVE A Medications Medications Current Medications Acetaminophen (Acetaminophen 325 Mg Tablet) 650 mg PO Q6H PRN PRN Reason: Headache/Pain, Scale 1-10 Last Admin: 02/02/25 08:56 Dose: 650 mg Al Hydroxide/Mg Hydroxide (Magnesium Hydrox/Alum Hydrox 30 Ml Oral.Susp) 30 ml PO Q6H PRN PRN Reason: Heartburn/Nausea Baclofen (Baclofen 10 Mg Tablet) 10 mg PO TID PRN PRN Reason: withdrawal discomfort Last Admin: 02/02/25 08:56 Dose: 10 mg Bupropion HCl (Bupropion Hcl Xl 150 Mg Tab.Er.24h) 150 mg PO DAILY [facility] Last Admin: 02/02/25 08:30 Dose: 150 mg Clonidine HCl (Clonidine Hcl 0.1 Mg Tablet) 0.1 mg PO BID PRN; Protocol PRN Reason: Withdrawal Last Admin: 02/02/25 08:56 Dose: 0.1 mg Diazepam (Diazepam 5 Mg Tablet) 10 mg PO TID [facility] Last Admin: 02/01/25 21:09 Dose: 10 mg Dicyclomine HCl (Dicyclomine Hcl 10 Mg Capsule) 20 mg PO BID PRN PRN Reason: Diarrhea Last Admin: 01/31/25 16:46 Dose: 20 mg Emtricitabine/Tenofovir (Emtricitabin/Tenofovir Df 200/300 Tablet) 1 tab PO DAILY [facility] Last Admin: 02/02/25 08:30 Dose: 1 tab Folic Acid (Folic Acid 1 Mg Tablet) 1 mg PO DAILY [facility] Last Admin: 02/02/25 08:31 Dose: 1 mg Gabapentin (Gabapentin 600 Mg Tablet) 600 mg PO TID [facility] Last Admin: 02/02/25 08:30 Dose: 600 mg Hydroxyzine HCl (Hydroxyzine Hcl 25 Mg Tablet) 25 mg PO Q6H PRN PRN Reason: mild anxiety Last Admin: 01/31/25 16:46 Dose: 25 mg Levothyroxine Sodium (Levothyroxine Sodium 100 Mcg Tablet) 100 mcg PO DAILY@0600 [facility] Last Admin: 02/02/25 08:30 Dose: 100 mcg Lorazepam (Lorazepam 1 Mg Tablet) 1 mg PO Q4H PRN PRN Reason: withdrawal sx Last Admin: 02/01/25 21:10 Dose: 1 mg Magnesium Hydroxide (Milk Of Magnesia 30 Ml Oral.Susp) 30 ml PO DAILY PRN PRN Reason: Constipation Last Admin: 01/30/25 16:06 Dose: 30 ml Methadone HCl (Methadone Hcl 20 Mg/2 Ml Oral.Conc) 110 mg PO DAILY@0800 [facility] Last Admin: 02/02/25 08:35 Dose: 110 mg Nicotine (Nicotine 21 Mg Patch.Td24) 21 mg TRANSDERMA DAILY PRN PRN Reason: smoking cessation Last Admin: 02/02/25 08:56 Dose: 21 mg Nicotine Polacrilex (Nicotine Polacrilex 2 Mg Gum) 4 mg BUCCAL Q2H PRN PRN Reason: Nicotine Cravings Last Admin: 02/01/25 21:10 Dose: 4 mg Olanzapine (Olanzapine 5 Mg Tablet) 5 mg PO TID PRN PRN Reason: agitation Last Admin: 01/31/25 22:02 Dose: 5 mg Oxcarbazepine (Oxcarbazepine 300 Mg Tablet) 300 mg PO BID [facility] Last Admin: 02/02/25 08:30 Dose: 300 mg Quetiapine Fumarate (Quetiapine Fumarate 50 Mg Tablet) 50 mg PO BEDTIME PRN PRN Reason: Insomnia Last Admin: 01/31/25 22:02 Dose: 50 mg Thiamine HCl (Thiamine Hcl 100 Mg Tablet) 100 mg PO DAILY [facility] Last Admin: 02/02/25 08:31 Dose: 100 mg Trazodone HCl (Trazodone Hcl 50 Mg Tablet) 50 mg PO BEDTIME MRX1 PRN PRN Reason: Insomnia Allergies Allergies Allergy/AdvReac Type Severity Reaction Status Date / Time No Known Allergies Allergy Verified 01/28/25 21:46 Assessment & Plan Assessment & Plan (1) PTSD (post-traumatic stress disorder): Status: Acute Code(s): F43.10 - Post-traumatic stress disorder, unspecified (2) Recurrent major depression: Status: Acute Code(s): F33.9 - Major depressive disorder, recurrent, unspecified (3) Alcohol use disorder, severe, dependence: Status: Acute Code(s): F10.20 - Alcohol dependence, uncomplicated (4) Opioid use disorder, severe, on maintenance therapy: Status: Acute Code(s): F11.20 - Opioid dependence, uncomplicated Plan Admit, CV, 15 minute checks Hospitalist consult-?need for phenobarbital protocol for withdrawal from alcohol Addiction Consult Valium 10 mg tid Ativan 1-3 mg q2 prn alcohol withdrawal BMP, B12,Folate, FBS, TSH, Lipid Panel, A1C Collateral contact Diagnostics as above and prn Encourage full milieu Discharge planning Valium decrease from 20 mg tid to 15 mg tid Ativan prn decrease to 1 mg q 4h prn withdrawal sx. 02/01/25: Continue current plans and regimen . Decrease Valium to 10 mg t.i.d. 02/02: Continue current regimen and plans Reason for continued inpatient stay Substantial Risk for: med/psych decompensation Time Spent With Patient Time: Total time managing care of this patient today ____ minutes.
[2025-02-02] MEDS: diazePAM 5 MG TABLET 10 MG PO ×3 (09:32→21:10)
[2025-02-02] MEDS: hydrOXYzine HCL 25 MG TABLET PO ×2 (11:30→23:08)
[2025-02-02] MEDS: LORazepam 1 MG TABLET PO ×2 (12:27→21:22)
[2025-02-02] MEDS: Dicyclomine HCl 10 MG CAPSULE 20 MG PO (15:24)
[2025-02-02 16:00] VITALS: BP 110/63; PULSE 84; TEMP 36.6; O2SAT 96
[2025-02-02 19:59] VITALS: BP 97/52; PULSE 67; RESP 15; TEMP 35.9; O2SAT 95
[2025-02-02 21:15] VITALS: BP 122/74; PULSE 84; RESP 15; TEMP 36.3; O2SAT 97
[2025-02-02] MEDS: OLANZapine 5 MG TABLET PO (23:08)
[2025-02-03 00:43] VITALS: BP 126/81; PULSE 87; RESP 15; TEMP 36.3; O2SAT 97
[2025-02-03] MEDS: cloNIDine HCL 0.1 MG TABLET PO ×2 (00:52→16:01)
[2025-02-03] MEDS: Baclofen 10 MG TABLET PO (00:52)
[2025-02-03] MEDS: LORazepam 1 MG TABLET PO ×2 (00:52→04:58)
[2025-02-03] MEDS: Acetaminophen 325 MG TABLET 650 MG PO ×2 (04:58→11:11)
[2025-02-03] MEDS: hydrOXYzine HCL 25 MG TABLET PO ×2 (04:58→16:01)
[2025-02-03] MEDS: Levothyroxine Sodium 100 MCG TABLET PO (06:49)
[2025-02-03] MEDS: methADONE HCl 20 MG/2 ML ORAL.CONC 110 MG PO (07:47)
[2025-02-03] MEDS: Folic Acid 1 MG TABLET PO (07:49)
[2025-02-03] MEDS: Thiamine HCL 100 MG TABLET PO (07:49)
[2025-02-03] MEDS: Emtricitabin/Tenofovir DF 200/300 TABLET 1 TAB PO (07:49)
[2025-02-03] MEDS: buPROPion HCl XL 150 MG TAB.ER.24H PO (07:49)
[2025-02-03] MEDS: OXcarbazepine 300 MG TABLET PO ×2 (07:49→21:17)
[2025-02-03] MEDS: Gabapentin 600 MG TABLET PO ×3 (07:49→21:17)
[2025-02-03] MEDS: diazePAM 5 MG TABLET 10 MG PO ×2 (07:49→21:17)
[2025-02-03 08:00] VITALS: BP 91/57; PULSE 72; RESP 16; TEMP 36.2; O2SAT 96
--- NOTE | 2025-02-03 11:03 | HO.PSYCHPN ---
Subjective Subjective Date of Service: 02/03/25 Reason For Visit: depressed/ SI Subjective Notes: Conditional Voluntary Healthcare Proxy: No Guardianship: No Medical Problems Affecting Mental Status: No Interim History: Discussed tapering of benzodiazepines with pt who reports ongoing withdrawal sx however with sedation. Reports SI, depressive sx, recovering from COVID. Reports he would like to return to [facility] as too many of his peers are using and this is a trigger for him. In the milieu, team report some confusion, sedation and difficulty with self care, keeping his room in reasonable order. Agrees to labs on 02/04. Review of Systems Review of Systems sedation, confusion Mental Status Exam Mental Status Exam Patient Appearance: Fatigued and Appropriate Patient Orientation: Person, Place and Situation Level of Consciousness: Drowsy, Sedated and Alert Patient Behavior: Talkative, Cooperative, Fatigued, Distractible and Good Eye Contact Mood Description: Flat Affect Description: Flat Patient Cognition Impaired: No Ability to Follow Directions: Good Speech Pattern: Spontaneous Speech Memory Description: Remote Impaired and Episodic Impaired Hallucinations: None Delusions: Not Present and Paranoid Ideation (at times team reports) Thought Process: Distracted and Confusion Thought Content: positive for Circumstantial and positive for Suicidal Ideation Depressive Symptoms: Thoughts of /Suicide Judgement: Poor Diagnostics Vital Signs (24Hr): Vital Signs - 24 hr 02/02/25 16:00 02/02/25 19:59 02/02/25 21:15 Temperature 98 F 96.7 F L 97.4 F Pulse Rate 84 67 84 Respiratory Rate 15 15 Blood Pressure 110/63 97/52 L 122/74 Pulse Oximetry 96 95 97 Oxygen Delivery Method Room Air 02/03/25 00:43 02/03/25 08:00 Temperature 97.4 F 97.1 F Pulse Rate 87 72 Respiratory Rate 15 16 Blood Pressure 126/81 91/57 L Pulse Oximetry 97 96 Oxygen Delivery Method Room Air BMI result Body Mass Index 25.4 Labs 01/28/25 22:54 02/04/25 07:38 Labs: Laboratory Results - last 48 hr 02/01/25 14:57 Influenza Type A (PCR) NEGATIVE Influenza Type B (PCR) NEGATIVE RSV RNA Qual (PCR) NEGATIVE SARS-CoV-2 RNA (RT-PCR) POSITIVE A Medications Medications Current Medications Acetaminophen (Acetaminophen 325 Mg Tablet) 650 mg PO Q6H PRN PRN Reason: Headache/Pain, Scale 1-10 Last Admin: 02/03/25 04:58 Dose: 650 mg Al Hydroxide/Mg Hydroxide (Magnesium Hydrox/Alum Hydrox 30 Ml Oral.Susp) 30 ml PO Q6H PRN PRN Reason: Heartburn/Nausea Baclofen (Baclofen 10 Mg Tablet) 10 mg PO TID PRN PRN Reason: withdrawal discomfort Last Admin: 02/03/25 00:52 Dose: 10 mg Bupropion HCl (Bupropion Hcl Xl 150 Mg Tab.Er.24h) 150 mg PO DAILY [facility] Last Admin: 02/03/25 07:49 Dose: 150 mg Clonidine HCl (Clonidine Hcl 0.1 Mg Tablet) 0.1 mg PO BID PRN; Protocol PRN Reason: Withdrawal Last Admin: 02/03/25 00:52 Dose: 0.1 mg Diazepam (Diazepam 5 Mg Tablet) 5 mg PO TID [facility] Dicyclomine HCl (Dicyclomine Hcl 10 Mg Capsule) 20 mg PO BID PRN PRN Reason: Diarrhea Last Admin: 02/02/25 15:24 Dose: 20 mg Emtricitabine/Tenofovir (Emtricitabin/Tenofovir Df 200/300 Tablet) 1 tab PO DAILY [facility] Last Admin: 02/03/25 07:49 Dose: 1 tab Folic Acid (Folic Acid 1 Mg Tablet) 1 mg PO DAILY [facility] Last Admin: 02/03/25 07:49 Dose: 1 mg Gabapentin (Gabapentin 600 Mg Tablet) 600 mg PO TID [facility] Last Admin: 02/03/25 07:49 Dose: 600 mg Hydroxyzine HCl (Hydroxyzine Hcl 25 Mg Tablet) 25 mg PO Q6H PRN PRN Reason: mild anxiety Last Admin: 02/03/25 04:58 Dose: 25 mg Levothyroxine Sodium (Levothyroxine Sodium 100 Mcg Tablet) 100 mcg PO DAILY@0600 [facility] Last Admin: 02/03/25 06:49 Dose: 100 mcg Magnesium Hydroxide (Milk Of Magnesia 30 Ml Oral.Susp) 30 ml PO DAILY PRN PRN Reason: Constipation Last Admin: 01/30/25 16:06 Dose: 30 ml Methadone HCl (Methadone Hcl 20 Mg/2 Ml Oral.Conc) 110 mg PO DAILY@0800 [facility] Last Admin: 02/03/25 07:47 Dose: 110 mg Nicotine (Nicotine 21 Mg Patch.Td24) 21 mg TRANSDERMA DAILY PRN PRN Reason: smoking cessation Last Admin: 02/02/25 08:56 Dose: 21 mg Nicotine Polacrilex (Nicotine Polacrilex 2 Mg Gum) 4 mg BUCCAL Q2H PRN PRN Reason: Nicotine Cravings Last Admin: 02/01/25 21:10 Dose: 4 mg Olanzapine (Olanzapine 5 Mg Tablet) 5 mg PO TID PRN PRN Reason: agitation Last Admin: 02/02/25 23:08 Dose: 5 mg Oxcarbazepine (Oxcarbazepine 300 Mg Tablet) 300 mg PO BID [facility] Last Admin: 02/03/25 07:49 Dose: 300 mg Quetiapine Fumarate (Quetiapine Fumarate 50 Mg Tablet) 50 mg PO BEDTIME PRN PRN Reason: Insomnia Last Admin: 01/31/25 22:02 Dose: 50 mg Thiamine HCl (Thiamine Hcl 100 Mg Tablet) 100 mg PO DAILY [facility] Last Admin: 02/03/25 07:49 Dose: 100 mg Trazodone HCl (Trazodone Hcl 50 Mg Tablet) 50 mg PO BEDTIME MRX1 PRN PRN Reason: Insomnia Allergies Allergies Allergy/AdvReac Type Severity Reaction Status Date / Time No Known Allergies Allergy Verified 01/28/25 21:46 Assessment & Plan Assessment & Plan (1) PTSD (post-traumatic stress disorder): Status: Acute Code(s): F43.10 - Post-traumatic stress disorder, unspecified (2) Recurrent major depression: Status: Acute Code(s): F33.9 - Major depressive disorder, recurrent, unspecified (3) Alcohol use disorder, severe, dependence: Status: Acute Code(s): F10.20 - Alcohol dependence, uncomplicated (4) Opioid use disorder, severe, on maintenance therapy: Status: Acute Code(s): F11.20 - Opioid dependence, uncomplicated Plan Admit, CV, 15 minute checks Hospitalist consult-?need for phenobarbital protocol for withdrawal from alcohol Addiction Consult Valium 10 mg tid Ativan 1-3 mg q2 prn alcohol withdrawal BMP, B12,Folate, FBS, TSH, Lipid Panel, A1C Collateral contact Diagnostics as above and prn Encourage full milieu Discharge planning Valium decrease from 20 mg tid to 15 mg tid Ativan prn decrease to 1 mg q 4h prn withdrawal sx. 02/01/25: Continue current plans and regimen . Decrease Valium to 10 mg t.i.d. 02/02: Continue current regimen and plans 02/03: Valium taper 02/04 Labs 02/04 Reason for continued inpatient stay Substantial Risk for: rapid decompensation and med/psych decompensation Time Spent With Patient Time: Total time managing care of this patient today ____ minutes.
[2025-02-03] MEDS: Nicotine 21 MG PATCH.TD24 TRANSDERMA (11:11)
[2025-02-03] MEDS: Nicotine Polacrilex 2 MG GUM 4 MG BUCCAL ×3 (11:11→22:45)
[2025-02-03] MEDS: diazePAM 5 MG TABLET PO ×2 (15:00→16:33)
[2025-02-03 16:01] VITALS: BP 108/75
[2025-02-03] MEDS: Dicyclomine HCl 10 MG CAPSULE 20 MG PO (16:33)
[2025-02-03 20:00] VITALS: BP 99/59; PULSE 68; TEMP 36.3
[2025-02-03] MEDS: QUEtiapine Fumarate 50 MG TABLET PO (22:12)
--- NOTE | 2025-02-04 05:06 | PC.NURSE ---
This patient accused one staff member of being sarcastic and childish when that staff asked him to repeat himself due to ambient noise. Patient accused this staff member of hating him as this sql report writer used the honorific sir, at the end of a reply to the patient. Patient seems to be very noticeably forgetful and confused as to the time of day. He is reactive to what he perceives as slights. Would suggest using two staff when interacting/approaching, due to accusatory statements and lability.
[2025-02-04] MEDS: Levothyroxine Sodium 100 MCG TABLET PO (06:48)
[2025-02-04] MEDS: methADONE HCl 20 MG/2 ML ORAL.CONC 110 MG PO (07:53)
[2025-02-04 08:00] VITALS: BP 118/78; PULSE 95; RESP 16; O2SAT 97
[2025-02-04] MEDS: Emtricitabin/Tenofovir DF 200/300 TABLET 1 TAB PO (08:31)
[2025-02-04] MEDS: Thiamine HCL 100 MG TABLET PO (08:31)
[2025-02-04] MEDS: Gabapentin 600 MG TABLET PO ×3 (08:31→21:08)
[2025-02-04] MEDS: OXcarbazepine 300 MG TABLET PO ×2 (08:31→21:08)
[2025-02-04] MEDS: diazePAM 5 MG TABLET 10 MG PO (08:32)
[2025-02-04] MEDS: Folic Acid 1 MG TABLET PO (08:32)
[2025-02-04] MEDS: buPROPion HCl XL 150 MG TAB.ER.24H PO (08:32)
[2025-02-04] MEDS: Acetaminophen 325 MG TABLET 650 MG PO (08:32)
[2025-02-04] MEDS: Nicotine Polacrilex 2 MG GUM 4 MG BUCCAL (08:35)
[2025-02-04] MEDS: Nicotine 21 MG PATCH.TD24 TRANSDERMA (08:36)
[2025-02-04 08:59] LABS: Alanine Aminotransferase 52 U/L (0-40); Albumin Level 3.8 g/dL (3.5-5.0); Alkaline Phosphatase 89 U/L (39-117); Anion Gap 13 (12-20); Aspartate Amino Transferase 42 U/L (5-37); Bilirubin Total 0.2 mg/dL (0.0-1.0); Blood Urea Nitrogen 20 mg/dL (9-16); Calcium 9.1 mg/dL (8.4-10.2); Carbon Dioxide 27 mmol/L (22-29); Chloride 99 mmol/L (96-108); Cholesterol 114 mg/dL (<200); Creatinine Clr Calc Pharmacy 109.1; Estimated Glomerular Filt Rate > 60; Glucose Fasting 108 mg/dL (60-99); HDL Cholesterol 36 mg/dL (>40); LDL Cholesterol Calculated 56 mg/dL (<100); Potassium 4.7 mmol/L (3.3-5.1); Sodium 134 mmol/L (135-145); Total Protein 9.2 g/dL (6.5-8.0); Triglycerides 113 mg/dL (<150)
[2025-02-04] MEDS: Dicyclomine HCl 10 MG CAPSULE 20 MG PO (09:02)
[2025-02-04 09:14] LABS: TSH reflex Free T4 15.81 uIU/mL (0.32-4.0)
[2025-02-04 09:17] LABS: Estimated Average Glucose 120 mg/dL; Hemoglobin A1C 126.9768 umol/L; Hemoglobin A1c % 5.8 % (<6.0)
[2025-02-04 09:28] LABS: Folate 11.5 ng/mL (> or = 4.0); Vitamin B12 403 pg/mL (200-900)
--- NOTE | 2025-02-04 09:51 | HO.PSYCHPN ---
Subjective Subjective Date of Service: 02/04/25 Reason For Visit: depressed/ SI Subjective Notes: Conditional Voluntary Healthcare Proxy: No Guardianship: No Medical Problems Affecting Mental Status: No Interim History: Continues with sedation, less confusion when we spoke today. NA 134 TSH 15.81 BUN 20 Team reports labile mood, accusatory, forgetful with paranoia and oversedation Medication Compliance: Yes Side effects from medications: Yes (sedation) Attending Groups: Intermittent Review of Systems Medical Review of Systems: unchanged Review of Systems Review of Systems Pt denies, recovering from covid He is sedate, with lability and confusion along with some paranoia Mental Status Exam Mental Status Exam Patient Appearance: Fatigued and Appropriate Patient Orientation: Person, Place and Situation Level of Consciousness: Drowsy, Sedated and Alert Patient Behavior: Talkative, Cooperative, Fatigued, Distractible and Good Eye Contact Mood Description: Flat Affect Description: Flat Patient Cognition Impaired: No Ability to Follow Directions: Good Speech Pattern: Spontaneous Speech Memory Description: Remote Impaired and Episodic Impaired Hallucinations: None Delusions: Not Present and Paranoid Ideation (at times team reports) Thought Process: Distracted and Confusion Thought Content: positive for Circumstantial and positive for Suicidal Ideation Depressive Symptoms: Thoughts of /Suicide Judgement: Poor Diagnostics Vital Signs (24Hr): Vital Signs - 24 hr 02/03/25 16:01 02/03/25 20:00 02/04/25 08:00 Temperature 97.3 F Pulse Rate 68 95 Respiratory Rate 16 Blood Pressure 108/75 99/59 L 118/78 Pulse Oximetry 97 BMI result Body Mass Index 25.4 Labs 01/28/25 22:54 02/04/25 07:38 Labs: Laboratory Results - last 48 hr 02/04/25 07:38 Sodium 134 L Potassium 4.7 D Chloride 99 Carbon Dioxide 27 Anion Gap 13 BUN 20 H Creatinine 0.82 Estim Creat Clear Calc 109.1 Estimated GFR > 60 Random Glucose Cancelled Fasting Glucose 108 H Estimat Average Glucose 120 Hemoglobin A1c % 5.8 Calcium 9.1 D Total Bilirubin 0.2 AST 42 H ALT 52 H Alkaline Phosphatase 89 Total Protein 9.2 H Albumin 3.8 Triglycerides 113 Cholesterol 114 LDL Cholesterol, Calc 56 HDL Cholesterol 36 L Vitamin B12 403 Folate 11.5 TSH 15.81 H Medications Medications Current Medications Acetaminophen (Acetaminophen 325 Mg Tablet) 650 mg PO Q6H PRN PRN Reason: Headache/Pain, Scale 1-10 Last Admin: 02/04/25 08:32 Dose: 650 mg Al Hydroxide/Mg Hydroxide (Magnesium Hydrox/Alum Hydrox 30 Ml Oral.Susp) 30 ml PO Q6H PRN PRN Reason: Heartburn/Nausea Baclofen (Baclofen 10 Mg Tablet) 10 mg PO TID PRN PRN Reason: withdrawal discomfort Last Admin: 02/03/25 00:52 Dose: 10 mg Bupropion HCl (Bupropion Hcl Xl 150 Mg Tab.Er.24h) 150 mg PO DAILY [facility] Last Admin: 02/04/25 08:32 Dose: 150 mg Clonidine HCl (Clonidine Hcl 0.1 Mg Tablet) 0.1 mg PO BID PRN; Protocol PRN Reason: Withdrawal Last Admin: 02/03/25 16:01 Dose: 0.1 mg Diazepam (Diazepam 5 Mg Tablet) 10 mg PO TID [facility] Last Admin: 02/04/25 08:32 Dose: 10 mg Dicyclomine HCl (Dicyclomine Hcl 10 Mg Capsule) 20 mg PO BID PRN PRN Reason: Diarrhea Last Admin: 02/04/25 09:02 Dose: 20 mg Emtricitabine/Tenofovir (Emtricitabin/Tenofovir Df 200/300 Tablet) 1 tab PO DAILY [facility] Last Admin: 02/04/25 08:31 Dose: 1 tab Folic Acid (Folic Acid 1 Mg Tablet) 1 mg PO DAILY [facility] Last Admin: 02/04/25 08:32 Dose: 1 mg Gabapentin (Gabapentin 600 Mg Tablet) 600 mg PO TID [facility] Last Admin: 02/04/25 08:31 Dose: 600 mg Hydroxyzine HCl (Hydroxyzine Hcl 25 Mg Tablet) 25 mg PO Q6H PRN PRN Reason: mild anxiety Last Admin: 02/03/25 16:01 Dose: 25 mg Ibuprofen (Ibuprofen 400 Mg Tablet) 400 mg PO Q6H [facility] Levothyroxine Sodium (Levothyroxine Sodium 100 Mcg Tablet) 100 mcg PO DAILY@0600 [facility] Last Admin: 02/04/25 06:48 Dose: 100 mcg Magnesium Hydroxide (Milk Of Magnesia 30 Ml Oral.Susp) 30 ml PO DAILY PRN PRN Reason: Constipation Last Admin: 01/30/25 16:06 Dose: 30 ml Methadone HCl (Methadone Hcl 20 Mg/2 Ml Oral.Conc) 110 mg PO DAILY@0800 [facility] Last Admin: 02/04/25 07:53 Dose: 110 mg Nicotine (Nicotine 21 Mg Patch.Td24) 21 mg TRANSDERMA DAILY PRN PRN Reason: smoking cessation Last Admin: 02/04/25 08:36 Dose: 21 mg Nicotine Polacrilex (Nicotine Polacrilex 2 Mg Gum) 4 mg BUCCAL Q2H PRN PRN Reason: Nicotine Cravings Last Admin: 02/04/25 08:35 Dose: 4 mg Olanzapine (Olanzapine 5 Mg Tablet) 5 mg PO TID PRN PRN Reason: agitation Last Admin: 02/02/25 23:08 Dose: 5 mg Oxcarbazepine (Oxcarbazepine 300 Mg Tablet) 300 mg PO BID [facility] Last Admin: 02/04/25 08:31 Dose: 300 mg Quetiapine Fumarate (Quetiapine Fumarate 50 Mg Tablet) 50 mg PO BEDTIME PRN PRN Reason: Insomnia Last Admin: 02/03/25 22:12 Dose: 50 mg Thiamine HCl (Thiamine Hcl 100 Mg Tablet) 100 mg PO DAILY [facility] Last Admin: 02/04/25 08:31 Dose: 100 mg Trazodone HCl (Trazodone Hcl 50 Mg Tablet) 50 mg PO BEDTIME MRX1 PRN PRN Reason: Insomnia Allergies Allergies Allergy/AdvReac Type Severity Reaction Status Date / Time No Known Allergies Allergy Verified 01/28/25 21:46 Assessment & Plan Assessment & Plan (1) PTSD (post-traumatic stress disorder): Status: Acute Code(s): F43.10 - Post-traumatic stress disorder, unspecified (2) Recurrent major depression: Status: Acute Code(s): F33.9 - Major depressive disorder, recurrent, unspecified (3) Alcohol use disorder, severe, dependence: Status: Acute Code(s): F10.20 - Alcohol dependence, uncomplicated (4) Opioid use disorder, severe, on maintenance therapy: Status: Acute Code(s): F11.20 - Opioid dependence, uncomplicated Plan Admit, CV, 15 minute checks Hospitalist consult-?need for phenobarbital protocol for withdrawal from alcohol Addiction Consult Valium 10 mg tid Ativan 1-3 mg q2 prn alcohol withdrawal BMP, B12,Folate, FBS, TSH, Lipid Panel, A1C Collateral contact Diagnostics as above and prn Encourage full milieu Discharge planning Valium decrease from 20 mg tid to 15 mg tid Ativan prn decrease to 1 mg q 4h prn withdrawal sx. 02/01/25: Continue current plans and regimen . Decrease Valium to 10 mg t.i.d. 02/02: Continue current regimen and plans 02/04: Increase Levothyroxine to 125 mcg daily Decrease Valium to 5 mg tid. Plan to decrease by 5 mg on 02/06. Continue to monitor sedation Reason for continued inpatient stay Substantial Risk for: rapid decompensation and med/psych decompensation Time Spent With Patient Time: Total time managing care of this patient today ____ minutes.
[2025-02-04] MEDS: OLANZapine 5 MG TABLET PO (09:57)
[2025-02-04 11:26] LABS: Free T4 (Free Thyroxine) 0.72 ng/dL (0.71-1.85)
[2025-02-04] MEDS: Ibuprofen 400 MG TABLET PO ×2 (12:55→21:08)
[2025-02-04] MEDS: diazePAM 5 MG TABLET PO ×2 (14:59→21:08)
[2025-02-04 20:00] VITALS: BP 108/82; PULSE 74; RESP 16; TEMP 36.4; O2SAT 97
[2025-02-04] MEDS: hydrOXYzine HCL 25 MG TABLET PO (21:10)
[2025-02-05] MEDS: methADONE HCl 20 MG/2 ML ORAL.CONC 110 MG PO (07:52)
[2025-02-05 08:00] VITALS: BP 100/60; PULSE 66; RESP 16; TEMP 36.5; O2SAT 95
[2025-02-05] MEDS: Folic Acid 1 MG TABLET PO (08:37)
[2025-02-05] MEDS: Emtricitabin/Tenofovir DF 200/300 TABLET 1 TAB PO (08:37)
[2025-02-05] MEDS: Gabapentin 600 MG TABLET PO ×3 (08:37→21:20)
[2025-02-05] MEDS: buPROPion HCl XL 150 MG TAB.ER.24H PO (08:37)
[2025-02-05] MEDS: Ibuprofen 400 MG TABLET PO ×3 (08:37→21:20)
[2025-02-05] MEDS: Thiamine HCL 100 MG TABLET PO (08:37)
[2025-02-05] MEDS: diazePAM 5 MG TABLET PO ×3 (08:37→21:21)
[2025-02-05] MEDS: OXcarbazepine 300 MG TABLET PO ×2 (08:37→21:21)
[2025-02-05] MEDS: Nicotine 21 MG PATCH.TD24 TRANSDERMA (08:42)
[2025-02-05] MEDS: Nicotine Polacrilex 2 MG GUM 4 MG BUCCAL (08:42)
--- NOTE | 2025-02-05 09:58 | HO.PSYCHPN ---
Subjective Subjective Date of Service: 02/05/25 Reason For Visit: depressed/ SI Subjective Notes: Conditional Voluntary Interim History: Discussed needing the right medicine regime so he will not abuse them. Goal is for sx mgt, not to potentiate addictive process. Pt asks to meet with his social group worker and tw on 02/06 to discuss trauma hx and options. Tells his social group worker today there is a TBI hx. Slow improvement with anger and mood lability present. Medication Compliance: Yes Side effects from medications: No Attending Groups: Intermittent Review of Systems Acute medical concerns: No Review of Systems Review of Systems denies Mental Status Exam Mental Status Exam Patient Appearance: Fatigued and Appropriate Patient Orientation: Person, Place and Situation Level of Consciousness: Drowsy, Sedated and Alert Patient Behavior: Talkative, Cooperative, Fatigued, Distractible and Good Eye Contact Mood Description: Flat Affect Description: Flat Patient Cognition Impaired: No Ability to Follow Directions: Good Speech Pattern: Spontaneous Speech Memory Description: Remote Impaired and Episodic Impaired Hallucinations: None Delusions: Not Present and Paranoid Ideation (at times team reports) Thought Process: Distracted and Confusion Thought Content: positive for Circumstantial and positive for Suicidal Ideation Depressive Symptoms: Thoughts of /Suicide Judgement: Poor Diagnostics Vital Signs (24Hr): Vital Signs - 24 hr 02/04/25 20:00 02/05/25 08:00 Temperature 97.6 F 97.7 F Pulse Rate 74 66 Respiratory Rate 16 16 Blood Pressure 108/82 100/60 Pulse Oximetry 97 95 Oxygen Delivery Method Room Air BMI result Body Mass Index 25.4 Labs 01/28/25 22:54 02/04/25 07:38 Labs: Laboratory Results - last 48 hr 02/04/25 07:38 Sodium 134 L Potassium 4.7 D Chloride 99 Carbon Dioxide 27 Anion Gap 13 BUN 20 H Creatinine 0.82 Estim Creat Clear Calc 109.1 Estimated GFR > 60 Random Glucose Cancelled Fasting Glucose 108 H Estimat Average Glucose 120 Hemoglobin A1c % 5.8 Calcium 9.1 D Total Bilirubin 0.2 AST 42 H ALT 52 H Alkaline Phosphatase 89 Total Protein 9.2 H Albumin 3.8 Triglycerides 113 Cholesterol 114 LDL Cholesterol, Calc 56 HDL Cholesterol 36 L Vitamin B12 403 Folate 11.5 TSH 15.81 H Free T4 0.72 Medications Medications Current Medications Acetaminophen (Acetaminophen 325 Mg Tablet) 650 mg PO Q6H PRN PRN Reason: Headache/Pain, Scale 1-10 Last Admin: 02/04/25 08:32 Dose: 650 mg Al Hydroxide/Mg Hydroxide (Magnesium Hydrox/Alum Hydrox 30 Ml Oral.Susp) 30 ml PO Q6H PRN PRN Reason: Heartburn/Nausea Baclofen (Baclofen 10 Mg Tablet) 5 mg PO TID PRN PRN Reason: withdrawal discomfort Bupropion HCl (Bupropion Hcl Xl 150 Mg Tab.Er.24h) 150 mg PO DAILY [facility] Last Admin: 02/05/25 08:37 Dose: 150 mg Clonidine HCl (Clonidine Hcl 0.1 Mg Tablet) 0.1 mg PO BID PRN; Protocol PRN Reason: Withdrawal Last Admin: 02/03/25 16:01 Dose: 0.1 mg Diazepam (Diazepam 5 Mg Tablet) 5 mg PO TID [facility] Last Admin: 02/05/25 08:37 Dose: 5 mg Dicyclomine HCl (Dicyclomine Hcl 10 Mg Capsule) 20 mg PO BID PRN PRN Reason: Diarrhea Last Admin: 02/04/25 09:02 Dose: 20 mg Emtricitabine/Tenofovir (Emtricitabin/Tenofovir Df 200/300 Tablet) 1 tab PO DAILY [facility] Last Admin: 02/05/25 08:37 Dose: 1 tab Folic Acid (Folic Acid 1 Mg Tablet) 1 mg PO DAILY [facility] Last Admin: 02/05/25 08:37 Dose: 1 mg Gabapentin (Gabapentin 600 Mg Tablet) 600 mg PO TID [facility] Last Admin: 02/05/25 08:37 Dose: 600 mg Hydroxyzine HCl (Hydroxyzine Hcl 25 Mg Tablet) 25 mg PO Q6H PRN PRN Reason: mild anxiety Last Admin: 02/04/25 21:10 Dose: 25 mg Ibuprofen (Ibuprofen 400 Mg Tablet) 400 mg PO Q6H [facility] Last Admin: 02/05/25 08:37 Dose: 400 mg Levothyroxine Sodium (Levothyroxine Sodium 125 Mcg Tablet) 125 mcg PO DAILY@0600 [facility] Last Admin: 02/05/25 08:26 Dose: Not Given Magnesium Hydroxide (Milk Of Magnesia 30 Ml Oral.Susp) 30 ml PO DAILY PRN PRN Reason: Constipation Last Admin: 01/30/25 16:06 Dose: 30 ml Methadone HCl (Methadone Hcl 20 Mg/2 Ml Oral.Conc) 110 mg PO DAILY@0800 [facility] Last Admin: 02/05/25 07:52 Dose: 110 mg Nicotine (Nicotine 21 Mg Patch.Td24) 21 mg TRANSDERMA DAILY PRN PRN Reason: smoking cessation Last Admin: 02/05/25 08:42 Dose: 21 mg Nicotine Polacrilex (Nicotine Polacrilex 2 Mg Gum) 4 mg BUCCAL Q2H PRN PRN Reason: Nicotine Cravings Last Admin: 02/05/25 08:42 Dose: 4 mg Olanzapine (Olanzapine 5 Mg Tablet) 5 mg PO TID PRN PRN Reason: agitation Last Admin: 02/04/25 09:57 Dose: 5 mg Oxcarbazepine (Oxcarbazepine 300 Mg Tablet) 300 mg PO BID [facility] Last Admin: 02/05/25 08:37 Dose: 300 mg Quetiapine Fumarate (Quetiapine Fumarate 50 Mg Tablet) 50 mg PO BEDTIME PRN PRN Reason: Insomnia Last Admin: 02/03/25 22:12 Dose: 50 mg Thiamine HCl (Thiamine Hcl 100 Mg Tablet) 100 mg PO DAILY [facility] Last Admin: 02/05/25 08:37 Dose: 100 mg Trazodone HCl (Trazodone Hcl 50 Mg Tablet) 50 mg PO BEDTIME MRX1 PRN PRN Reason: Insomnia Allergies Allergies Allergy/AdvReac Type Severity Reaction Status Date / Time No Known Allergies Allergy Verified 01/28/25 21:46 Assessment & Plan Assessment & Plan (1) PTSD (post-traumatic stress disorder): Status: Acute Code(s): F43.10 - Post-traumatic stress disorder, unspecified (2) Recurrent major depression: Status: Acute Code(s): F33.9 - Major depressive disorder, recurrent, unspecified (3) Alcohol use disorder, severe, dependence: Status: Acute Code(s): F10.20 - Alcohol dependence, uncomplicated (4) Opioid use disorder, severe, on maintenance therapy: Status: Acute Code(s): F11.20 - Opioid dependence, uncomplicated Plan Admit, CV, 15 minute checks Hospitalist consult-?need for phenobarbital protocol for withdrawal from alcohol Addiction Consult Valium 10 mg tid Ativan 1-3 mg q2 prn alcohol withdrawal BMP, B12,Folate, FBS, TSH, Lipid Panel, A1C Collateral contact Diagnostics as above and prn Encourage full milieu Discharge planning Valium decrease from 20 mg tid to 15 mg tid Ativan prn decrease to 1 mg q 4h prn withdrawal sx. 3/8/25: Continue current plans and regimen . Decrease Valium to 10 mg t.i.d. 02/02: Continue current regimen and plans 02/04: Increase Levothyroxine to 125 mcg daily Decrease Valium to 5 mg tid. Plan to decrease by 5 mg on 02/06. Continue to monitor sedation 02/05: No changes today Reason for continued inpatient stay Substantial Risk for: rapid decompensation Time Spent With Patient Time: Total time managing care of this patient today ____ minutes.
[2025-02-05] MEDS: Baclofen 10 MG TABLET 5 MG PO ×2 (11:13→21:39)
[2025-02-05] MEDS: OLANZapine 5 MG TABLET PO (11:13)
[2025-02-05] MEDS: hydrOXYzine HCL 25 MG TABLET PO ×2 (11:13→21:41)
[2025-02-05 20:00] VITALS: BP 121/79; PULSE 87; RESP 16; TEMP 36.4; O2SAT 95
[2025-02-05] MEDS: Dicyclomine HCl 10 MG CAPSULE 20 MG PO (21:41)
[2025-02-05] MEDS: cloNIDine HCL 0.1 MG TABLET PO (21:42)
[2025-02-05] MEDS: QUEtiapine Fumarate 50 MG TABLET PO (21:48)
[2025-02-06] MEDS: methADONE HCl 20 MG/2 ML ORAL.CONC 110 MG PO (08:09)
[2025-02-06] MEDS: Folic Acid 1 MG TABLET PO (08:10)
[2025-02-06] MEDS: Ibuprofen 400 MG TABLET PO ×3 (08:10→20:45)
[2025-02-06] MEDS: OXcarbazepine 300 MG TABLET PO ×2 (08:10→20:46)
[2025-02-06] MEDS: Gabapentin 600 MG TABLET PO ×3 (08:11→20:46)
[2025-02-06] MEDS: buPROPion HCl XL 150 MG TAB.ER.24H PO ×2 (08:11→12:24)
[2025-02-06] MEDS: diazePAM 5 MG TABLET PO ×3 (08:11→20:45)
[2025-02-06] MEDS: Thiamine HCL 100 MG TABLET PO (08:11)
[2025-02-06] MEDS: Emtricitabin/Tenofovir DF 200/300 TABLET 1 TAB PO (08:11)
[2025-02-06 08:29] VITALS: BP 119/60; PULSE 80; RESP 18; TEMP 36.4; O2SAT 97
[2025-02-06] MEDS: cloNIDine HCL 0.1 MG TABLET PO ×2 (09:06→14:27)
[2025-02-06] MEDS: Nicotine 21 MG PATCH.TD24 TRANSDERMA (09:06)
[2025-02-06] MEDS: Baclofen 10 MG TABLET 5 MG PO ×2 (09:06→20:44)
[2025-02-06] MEDS: hydrOXYzine HCL 25 MG TABLET PO ×3 (09:08→20:45)
[2025-02-06] MEDS: Nicotine Polacrilex 2 MG GUM 4 MG BUCCAL (09:08)
[2025-02-06] MEDS: Dicyclomine HCl 10 MG CAPSULE 20 MG PO ×3 (09:08→20:46)
--- NOTE | 2025-02-06 10:17 | HO.PSYCHPN ---
Subjective Subjective Date of Service: 02/06/25 Reason For Visit: depressed/ SI Subjective Notes: Conditional Voluntary Interim History: Met with pt and Nadeen LEYVAW. Review of meds. Declines Depakote, Seroquel, [place], Olanzapine. Review of Vraylar. Discussed taking Ritalin in childhood Discussed use of Klonopin ODT Team reports agitation, anger, irritability Medication Compliance: Yes Side effects from medications: No Attending Groups: Intermittent Review of Systems Acute medical concerns: No Review of Systems Review of Systems Denies Mental Status Exam Mental Status Exam Patient Appearance: Fatigued and Appropriate Patient Orientation: Person, Place and Situation Level of Consciousness: Drowsy, Sedated and Alert Patient Behavior: Talkative, Cooperative, Fatigued, Distractible and Good Eye Contact Mood Description: Flat Affect Description: Flat Patient Cognition Impaired: No Ability to Follow Directions: Good Speech Pattern: Spontaneous Speech Memory Description: Remote Impaired and Episodic Impaired Hallucinations: None Delusions: Not Present and Paranoid Ideation (at times team reports) Thought Process: Distracted and Confusion Thought Content: positive for Circumstantial and positive for Suicidal Ideation Depressive Symptoms: Thoughts of /Suicide Judgement: Poor Diagnostics Vital Signs (24Hr): Vital Signs - 24 hr 02/05/25 20:00 02/06/25 08:29 Temperature 97.6 F 97.5 F Pulse Rate 87 80 Respiratory Rate 16 18 Blood Pressure 121/79 119/60 Pulse Oximetry 95 97 Oxygen Delivery Method Room Air Room Air BMI result Body Mass Index 25.4 Labs 01/28/25 22:54 02/04/25 07:38 Labs: Laboratory Results - last 48 hr 02/04/25 07:38 Free T4 0.72 Medications Medications Current Medications Acetaminophen (Acetaminophen 325 Mg Tablet) 650 mg PO Q6H PRN PRN Reason: Headache/Pain, Scale 1-10 Last Admin: 02/04/25 08:32 Dose: 650 mg Al Hydroxide/Mg Hydroxide (Magnesium Hydrox/Alum Hydrox 30 Ml Oral.Susp) 30 ml PO Q6H PRN PRN Reason: Heartburn/Nausea Baclofen (Baclofen 10 Mg Tablet) 5 mg PO TID PRN PRN Reason: withdrawal discomfort Last Admin: 02/06/25 09:06 Dose: 5 mg Bupropion HCl (Bupropion Hcl Xl 150 Mg Tab.Er.24h) 150 mg PO DAILY [facility] Last Admin: 02/06/25 08:11 Dose: 150 mg Clonidine HCl (Clonidine Hcl 0.1 Mg Tablet) 0.1 mg PO BID PRN; Protocol PRN Reason: Withdrawal Last Admin: 02/06/25 09:06 Dose: 0.1 mg Diazepam (Diazepam 5 Mg Tablet) 5 mg PO TID [facility] Last Admin: 02/06/25 08:11 Dose: 5 mg Dicyclomine HCl (Dicyclomine Hcl 10 Mg Capsule) 20 mg PO BID PRN PRN Reason: Diarrhea Last Admin: 02/06/25 09:08 Dose: 20 mg Emtricitabine/Tenofovir (Emtricitabin/Tenofovir Df 200/300 Tablet) 1 tab PO DAILY [facility] Last Admin: 02/06/25 08:11 Dose: 1 tab Folic Acid (Folic Acid 1 Mg Tablet) 1 mg PO DAILY [facility] Last Admin: 02/06/25 08:10 Dose: 1 mg Gabapentin (Gabapentin 600 Mg Tablet) 600 mg PO TID [facility] Last Admin: 02/06/25 08:11 Dose: 600 mg Hydroxyzine HCl (Hydroxyzine Hcl 25 Mg Tablet) 25 mg PO Q6H PRN PRN Reason: mild anxiety Last Admin: 02/06/25 09:08 Dose: 25 mg Ibuprofen (Ibuprofen 400 Mg Tablet) 400 mg PO Q6H [facility] Last Admin: 02/06/25 08:10 Dose: 400 mg Levothyroxine Sodium (Levothyroxine Sodium 125 Mcg Tablet) 125 mcg PO DAILY@0600 [facility] Last Admin: 02/06/25 06:50 Dose: Not Given Magnesium Hydroxide (Milk Of Magnesia 30 Ml Oral.Susp) 30 ml PO DAILY PRN PRN Reason: Constipation Last Admin: 01/30/25 16:06 Dose: 30 ml Methadone HCl (Methadone Hcl 20 Mg/2 Ml Oral.Conc) 110 mg PO DAILY@0800 [facility] Last Admin: 02/06/25 08:09 Dose: 110 mg Nicotine (Nicotine 21 Mg Patch.Td24) 21 mg TRANSDERMA DAILY PRN PRN Reason: smoking cessation Last Admin: 02/06/25 09:06 Dose: 21 mg Nicotine Polacrilex (Nicotine Polacrilex 2 Mg Gum) 4 mg BUCCAL Q2H PRN PRN Reason: Nicotine Cravings Last Admin: 02/06/25 09:08 Dose: 4 mg Olanzapine (Olanzapine 5 Mg Tablet) 5 mg PO TID PRN PRN Reason: agitation Last Admin: 02/05/25 11:13 Dose: 5 mg Oxcarbazepine (Oxcarbazepine 300 Mg Tablet) 300 mg PO BID [facility] Last Admin: 02/06/25 08:10 Dose: 300 mg Quetiapine Fumarate (Quetiapine Fumarate 50 Mg Tablet) 50 mg PO BEDTIME PRN PRN Reason: Insomnia Last Admin: 02/05/25 21:48 Dose: 50 mg Thiamine HCl (Thiamine Hcl 100 Mg Tablet) 100 mg PO DAILY [facility] Last Admin: 02/06/25 08:11 Dose: 100 mg Trazodone HCl (Trazodone Hcl 50 Mg Tablet) 50 mg PO BEDTIME MRX1 PRN PRN Reason: Insomnia Allergies Allergies Allergy/AdvReac Type Severity Reaction Status Date / Time No Known Allergies Allergy Verified 01/28/25 21:46 Assessment & Plan Assessment & Plan (1) PTSD (post-traumatic stress disorder): Status: Acute Code(s): F43.10 - Post-traumatic stress disorder, unspecified (2) Recurrent major depression: Status: Acute Code(s): F33.9 - Major depressive disorder, recurrent, unspecified (3) Alcohol use disorder, severe, dependence: Status: Acute Code(s): F10.20 - Alcohol dependence, uncomplicated (4) Opioid use disorder, severe, on maintenance therapy: Status: Acute Code(s): F11.20 - Opioid dependence, uncomplicated Plan Admit, CV, 15 minute checks Hospitalist consult-?need for phenobarbital protocol for withdrawal from alcohol Addiction Consult Valium 10 mg tid Ativan 1-3 mg q2 prn alcohol withdrawal BMP, B12,Folate, FBS, TSH, Lipid Panel, A1C Collateral contact Diagnostics as above and prn Encourage full milieu Discharge planning Valium decrease from 20 mg tid to 15 mg tid Ativan prn decrease to 1 mg q 4h prn withdrawal sx. 02/01/25: Continue current plans and regimen . Decrease Valium to 10 mg t.i.d. 02/02: Continue current regimen and plans 02/04: Increase Levothyroxine to 125 mcg daily Decrease Valium to 5 mg tid. Plan to decrease by 5 mg on 02/06. Continue to monitor sedation 02/06: Klonopin ODT prn 1 mg daily Decrease Methadone to 105 mg daily Vraylar 3 mg daily Increase Wellbutrin to 300 mg XL daily Reason for continued inpatient stay Substantial Risk for: rapid decompensation Time Spent With Patient Time: Total time managing care of this patient today ____ minutes.
[2025-02-06] MEDS: Cariprazine HCl 3 MG CAPSULE PO (12:24)
[2025-02-06 14:27] VITALS: BP 118/69
[2025-02-06 16:33] LABS: Influenza A PCR NEGATIVE (Negative); Influenza B PCR NEGATIVE (Negative); Resp Syncy Virus RNA Qual PCR NEGATIVE (Negative); SARS COV2 PCR INHOUSE NEGATIVE (Negative)
[2025-02-06 19:58] VITALS: BP 107/65; PULSE 71; RESP 15; TEMP 37; O2SAT 95
[2025-02-06] MEDS: clonazePAM ODT 0.5 MG TAB.RAPDIS 1 MG PO (20:44)
[2025-02-06] MEDS: OLANZapine 5 MG TABLET PO (23:50)
[2025-02-07] MEDS: methADONE HCl 20 MG/2 ML ORAL.CONC 105 MG PO (07:48)
[2025-02-07] MEDS: diazePAM 5 MG TABLET PO ×2 (07:59→21:17)
[2025-02-07] MEDS: Folic Acid 1 MG TABLET PO (07:59)
[2025-02-07] MEDS: Gabapentin 600 MG TABLET PO ×3 (07:59→21:18)
[2025-02-07 08:00] VITALS: BP 104/60; PULSE 73; TEMP 36.3; O2SAT 96
[2025-02-07] MEDS: cloNIDine HCL 0.1 MG TABLET PO ×2 (08:00→21:18)
[2025-02-07] MEDS: Cariprazine HCl 3 MG CAPSULE PO (08:00)
[2025-02-07] MEDS: Thiamine HCL 100 MG TABLET PO (08:00)
[2025-02-07] MEDS: hydrOXYzine HCL 25 MG TABLET PO ×3 (08:00→21:21)
[2025-02-07] MEDS: OXcarbazepine 300 MG TABLET PO ×2 (08:01→21:17)
[2025-02-07] MEDS: Emtricitabin/Tenofovir DF 200/300 TABLET 1 TAB PO (08:01)
[2025-02-07] MEDS: buPROPion HCl XL 300 MG TAB.ER.24H PO (08:01)
[2025-02-07] MEDS: Loperamide HCl 2 MG CAPSULE 4 MG PO (08:01)
[2025-02-07] MEDS: Baclofen 10 MG TABLET 5 MG PO ×2 (08:01→21:17)
[2025-02-07] MEDS: Ibuprofen 400 MG TABLET PO ×3 (08:03→21:18)
[2025-02-07] MEDS: Nicotine 21 MG PATCH.TD24 TRANSDERMA (08:37)
[2025-02-07] MEDS: Nicotine Polacrilex 2 MG GUM 4 MG BUCCAL (08:37)
[2025-02-07] MEDS: OLANZapine 5 MG TABLET PO (12:46)
[2025-02-07] MEDS: Dicyclomine HCl 10 MG CAPSULE 20 MG PO (12:46)
--- NOTE | 2025-02-07 15:14 | HO.PSYCHPN ---
Subjective Subjective Date of Service: 02/07/25 Reason For Visit: depressed/ SI Subjective Notes: Conditional Voluntary Healthcare Proxy: No Guardianship: No Medical Problems Affecting Mental Status: No Interim History: Tolerating med changes, continues with sedation. Found sleeping on half of his bed this afternoon Reports feeling some improvement overall. Discussed the struggle with addiction, feeling well, wanting to feel well vs high and his choice of meds. Asking for a stimulant which was denied at this time. Medication Compliance: Yes Side effects from medications: Yes (sedation) Attending Groups: Intermittent Review of Systems Acute medical concerns: No Review of Systems Review of Systems denies today Mental Status Exam Mental Status Exam Patient Appearance: Fatigued and Appropriate Patient Orientation: Person, Place and Situation Level of Consciousness: Drowsy, Sedated and Alert Patient Behavior: Talkative, Cooperative, Fatigued, Distractible and Good Eye Contact Mood Description: Flat Affect Description: Flat Patient Cognition Impaired: No Ability to Follow Directions: Good Speech Pattern: Spontaneous Speech Memory Description: Remote Impaired and Episodic Impaired Hallucinations: None Delusions: Not Present and Paranoid Ideation (at times team reports) Thought Process: Distracted and Confusion Thought Content: positive for Circumstantial and positive for Suicidal Ideation Depressive Symptoms: Thoughts of /Suicide Judgement: Poor Diagnostics Vital Signs (24Hr): Vital Signs - 24 hr 02/06/25 19:58 02/07/25 08:00 02/07/25 08:00 Temperature 98.6 F 97.4 F Pulse Rate 71 73 Respiratory Rate 15 Blood Pressure 107/65 104/60 104/60 Pulse Oximetry 95 96 Oxygen Delivery Method Room Air BMI result Body Mass Index 25.4 Labs 01/28/25 22:54 02/04/25 07:38 Labs: Laboratory Results - last 48 hr 02/06/25 15:37 Influenza Type A (PCR) NEGATIVE Influenza Type B (PCR) NEGATIVE RSV RNA Qual (PCR) NEGATIVE SARS-CoV-2 RNA (RT-PCR) NEGATIVE Medications Medications Current Medications Acetaminophen (Acetaminophen 325 Mg Tablet) 650 mg PO Q6H PRN PRN Reason: Headache/Pain, Scale 1-10 Last Admin: 02/04/25 08:32 Dose: 650 mg Al Hydroxide/Mg Hydroxide (Magnesium Hydrox/Alum Hydrox 30 Ml Oral.Susp) 30 ml PO Q6H PRN PRN Reason: Heartburn/Nausea Baclofen (Baclofen 10 Mg Tablet) 5 mg PO TID PRN PRN Reason: withdrawal discomfort Last Admin: 02/07/25 08:01 Dose: 5 mg Bupropion HCl (Bupropion Hcl Xl 300 Mg Tab.Er.24h) 300 mg PO DAILY [facility] Last Admin: 02/07/25 08:01 Dose: 300 mg Cariprazine (Cariprazine Hcl 3 Mg Capsule) 3 mg PO DAILY [facility] Last Admin: 02/07/25 08:00 Dose: 3 mg Clonazepam (Clonazepam Odt 0.5 Mg Tab.Rapdis) 1 mg PO DAILY PRN PRN Reason: panic attacks Last Admin: 02/06/25 20:44 Dose: 1 mg Clonidine HCl (Clonidine Hcl 0.1 Mg Tablet) 0.1 mg PO BID PRN; Protocol PRN Reason: Withdrawal Last Admin: 02/07/25 08:00 Dose: 0.1 mg Diazepam (Diazepam 5 Mg Tablet) 5 mg PO BID [facility] Last Admin: 02/07/25 07:59 Dose: 5 mg Dicyclomine HCl (Dicyclomine Hcl 10 Mg Capsule) 20 mg PO BID PRN PRN Reason: Diarrhea Last Admin: 02/07/25 12:46 Dose: 20 mg Emtricitabine/Tenofovir (Emtricitabin/Tenofovir Df 200/300 Tablet) 1 tab PO DAILY [facility] Last Admin: 02/07/25 08:01 Dose: 1 tab Folic Acid (Folic Acid 1 Mg Tablet) 1 mg PO DAILY [facility] Last Admin: 02/07/25 07:59 Dose: 1 mg Gabapentin (Gabapentin 600 Mg Tablet) 600 mg PO TID [facility] Last Admin: 02/07/25 14:57 Dose: 600 mg Hydroxyzine HCl (Hydroxyzine Hcl 25 Mg Tablet) 25 mg PO Q6H PRN PRN Reason: mild anxiety Last Admin: 02/07/25 12:46 Dose: 25 mg Ibuprofen (Ibuprofen 400 Mg Tablet) 400 mg PO Q6H [facility] Last Admin: 02/07/25 14:58 Dose: 400 mg Levothyroxine Sodium (Levothyroxine Sodium 125 Mcg Tablet) 125 mcg PO DAILY@0600 [facility] Last Admin: 02/07/25 06:37 Dose: Not Given Loperamide HCl (Loperamide Hcl 2 Mg Capsule) 4 mg PO Q4H PRN PRN Reason: Diarrhea Last Admin: 02/07/25 08:01 Dose: 4 mg Magnesium Hydroxide (Milk Of Magnesia 30 Ml Oral.Susp) 30 ml PO DAILY PRN PRN Reason: Constipation Last Admin: 01/30/25 16:06 Dose: 30 ml Methadone HCl (Methadone Hcl 20 Mg/2 Ml Oral.Conc) 105 mg PO DAILY@0800 [facility] Last Admin: 02/07/25 07:48 Dose: 105 mg Nicotine (Nicotine 21 Mg Patch.Td24) 21 mg TRANSDERMA DAILY PRN PRN Reason: smoking cessation Last Admin: 02/07/25 08:37 Dose: 21 mg Nicotine Polacrilex (Nicotine Polacrilex 2 Mg Gum) 4 mg BUCCAL Q2H PRN PRN Reason: Nicotine Cravings Last Admin: 02/07/25 08:37 Dose: 4 mg Olanzapine (Olanzapine 5 Mg Tablet) 5 mg PO TID PRN PRN Reason: agitation Last Admin: 02/07/25 12:46 Dose: 5 mg Oxcarbazepine (Oxcarbazepine 300 Mg Tablet) 300 mg PO BID [facility] Last Admin: 02/07/25 08:01 Dose: 300 mg Quetiapine Fumarate (Quetiapine Fumarate 50 Mg Tablet) 50 mg PO BEDTIME PRN PRN Reason: Insomnia Last Admin: 02/05/25 21:48 Dose: 50 mg Thiamine HCl (Thiamine Hcl 100 Mg Tablet) 100 mg PO DAILY [facility] Last Admin: 02/07/25 08:00 Dose: 100 mg Trazodone HCl (Trazodone Hcl 50 Mg Tablet) 50 mg PO BEDTIME MRX1 PRN PRN Reason: Insomnia Allergies Allergies Allergy/AdvReac Type Severity Reaction Status Date / Time No Known Allergies Allergy Verified 01/28/25 21:46 Assessment & Plan Assessment & Plan (1) PTSD (post-traumatic stress disorder): Status: Acute Code(s): F43.10 - Post-traumatic stress disorder, unspecified (2) Recurrent major depression: Status: Acute Code(s): F33.9 - Major depressive disorder, recurrent, unspecified (3) Alcohol use disorder, severe, dependence: Status: Acute Code(s): F10.20 - Alcohol dependence, uncomplicated (4) Opioid use disorder, severe, on maintenance therapy: Status: Acute Code(s): F11.20 - Opioid dependence, uncomplicated Plan Admit, CV, 15 minute checks Hospitalist consult-?need for phenobarbital protocol for withdrawal from alcohol Addiction Consult Valium 10 mg tid Ativan 1-3 mg q2 prn alcohol withdrawal BMP, B12,Folate, FBS, TSH, Lipid Panel, A1C Collateral contact Diagnostics as above and prn Encourage full milieu Discharge planning Valium decrease from 20 mg tid to 15 mg tid Ativan prn decrease to 1 mg q 4h prn withdrawal sx. 02/01/25: Continue current plans and regimen . Decrease Valium to 10 mg t.i.d. 02/02: Continue current regimen and plans 02/04: Increase Levothyroxine to 125 mcg daily Decrease Valium to 5 mg tid. Plan to decrease by 5 mg on 02/06. Continue to monitor sedation 02/06: Klonopin ODT prn 1 mg daily Decrease Methadone to 105 mg daily Vraylar 3 mg daily Increase Wellbutrin to 300 mg XL daily 02/07: Continue tx Reason for continued inpatient stay Substantial Risk for: rapid decompensation Time Spent With Patient Time: Total time managing care of this patient today ____ minutes.
[2025-02-07] MEDS: clonazePAM ODT 0.5 MG TAB.RAPDIS 1 MG PO (16:46)
[2025-02-07 20:00] VITALS: BP 107/60; PULSE 80; TEMP 36.6; O2SAT 96
[2025-02-07 21:18] VITALS: BP 107/60
[2025-02-08] MEDS: methADONE HCl 20 MG/2 ML ORAL.CONC 105 MG PO (07:54)
[2025-02-08] MEDS: Dicyclomine HCl 10 MG CAPSULE 20 MG PO ×2 (08:30→21:03)
[2025-02-08] MEDS: Ibuprofen 400 MG TABLET PO ×3 (08:30→21:01)
[2025-02-08] MEDS: diazePAM 5 MG TABLET PO ×2 (08:30→21:01)
[2025-02-08] MEDS: Folic Acid 1 MG TABLET PO (08:30)
[2025-02-08] MEDS: Cariprazine HCl 3 MG CAPSULE PO (08:30)
[2025-02-08] MEDS: Emtricitabin/Tenofovir DF 200/300 TABLET 1 TAB PO (08:30)
[2025-02-08] MEDS: Levothyroxine Sodium 125 MCG TABLET PO (08:31)
[2025-02-08] MEDS: OXcarbazepine 300 MG TABLET PO ×2 (08:31→21:02)
[2025-02-08] MEDS: Thiamine HCL 100 MG TABLET PO (08:31)
[2025-02-08] MEDS: buPROPion HCl XL 300 MG TAB.ER.24H PO (08:31)
[2025-02-08] MEDS: Baclofen 10 MG TABLET 5 MG PO ×3 (08:31→21:02)
[2025-02-08 08:32] VITALS: BP 128/74
[2025-02-08] MEDS: cloNIDine HCL 0.1 MG TABLET PO ×2 (08:32→14:58)
[2025-02-08] MEDS: Nicotine Polacrilex 2 MG GUM 4 MG BUCCAL (08:33)
[2025-02-08] MEDS: Nicotine 21 MG PATCH.TD24 TRANSDERMA (08:35)
--- NOTE | 2025-02-08 08:42 | P.PNPSI_ITS ---
Subjective Subjective Date of Service: 02/08/25 Reason For Visit: depressed/ SI Subjective Notes: Conditional Voluntary Healthcare Proxy: No Guardianship: No Medical Problems Affecting Mental Status: No Interim History: I just need to be back on my ritalin Pt reports 10 years ago was on the right medication combination and was fine - Pt denies being sedated- and when asked about speech says he has a speech impediment- He denies current si, medication side effects , or psychosis- Also discussed with patient he can't use cocaine and expect be put on ritalin as risk are too high to health- Medication Compliance: Yes Side effects from medications: No (has been tapered down on some meds due to nodding off) Attending Groups: Yes Review of Systems Acute medical concerns: No Medical Review of Systems: unchanged Mental Status Exam Mental Status Exam Patient Appearance: Appropriate Patient Orientation: Person, Place, Time and Situation Level of Consciousness: Awake and Restless Patient Behavior: Talkative, Cooperative and Good Eye Contact Mood Description: Calm Affect Description: Apprehensive Patient Cognition Impaired: No Ability to Follow Directions: Fair Speech Pattern: Slurred Hallucinations: None Delusions: Not Present Thought Process: Intact and Goal Oriented Thought Content: positive for Intact and positive for Perseveration (focused on ritalin) Abnormal Motor Activity Signs and Symptoms: Restlessness Judgement: Fair Diagnostics Vital Signs (24Hr): Vital Signs - 24 hr 02/07/25 20:00 02/07/25 21:18 02/08/25 08:32 Temperature 97.8 F Pulse Rate 80 Blood Pressure 107/60 107/60 128/74 Pulse Oximetry 96 Oxygen Delivery Method Room Air BMI result Body Mass Index 25.4 Labs 01/28/25 22:54 02/04/25 07:38 Labs: Laboratory Results - last 48 hr 02/06/25 15:37 Influenza Type A (PCR) NEGATIVE Influenza Type B (PCR) NEGATIVE RSV RNA Qual (PCR) NEGATIVE SARS-CoV-2 RNA (RT-PCR) NEGATIVE Medications Medications Current Medications Acetaminophen (Acetaminophen 325 Mg Tablet) 650 mg PO Q12H PRN PRN Reason: Headache/Pain, Scale 1-10 Al Hydroxide/Mg Hydroxide (Magnesium Hydrox/Alum Hydrox 30 Ml Oral.Susp) 30 ml PO Q6H PRN PRN Reason: Heartburn/Nausea Baclofen (Baclofen 10 Mg Tablet) 5 mg PO TID PRN PRN Reason: withdrawal discomfort Last Admin: 02/08/25 08:31 Dose: 5 mg Bupropion HCl (Bupropion Hcl Xl 300 Mg Tab.Er.24h) 300 mg PO DAILY [facility] Last Admin: 02/08/25 08:31 Dose: 300 mg Cariprazine (Cariprazine Hcl 3 Mg Capsule) 3 mg PO DAILY [facility] Last Admin: 02/08/25 08:30 Dose: 3 mg Clonazepam (Clonazepam Odt 0.5 Mg Tab.Rapdis) 1 mg PO DAILY PRN PRN Reason: panic attacks Last Admin: 02/07/25 16:46 Dose: 1 mg Clonidine HCl (Clonidine Hcl 0.1 Mg Tablet) 0.1 mg PO BID PRN; Protocol PRN Reason: Withdrawal Last Admin: 02/08/25 08:32 Dose: 0.1 mg Diazepam (Diazepam 5 Mg Tablet) 5 mg PO BID [facility] Stop: 02/08/25 22:00 Last Admin: 02/08/25 08:30 Dose: 5 mg Diazepam (Diazepam 5 Mg Tablet) 5 mg PO DAILY [facility] Dicyclomine HCl (Dicyclomine Hcl 10 Mg Capsule) 20 mg PO BID PRN PRN Reason: Diarrhea Last Admin: 02/08/25 08:30 Dose: 20 mg Emtricitabine/Tenofovir (Emtricitabin/Tenofovir Df 200/300 Tablet) 1 tab PO DAILY [facility] Last Admin: 02/08/25 08:30 Dose: 1 tab Folic Acid (Folic Acid 1 Mg Tablet) 1 mg PO DAILY [facility] Last Admin: 02/08/25 08:30 Dose: 1 mg Gabapentin (Gabapentin 600 Mg Tablet) 600 mg PO TID [facility] Last Admin: 02/07/25 21:18 Dose: 600 mg Hydroxyzine HCl (Hydroxyzine Hcl 25 Mg Tablet) 25 mg PO Q6H PRN PRN Reason: mild anxiety Last Admin: 02/07/25 21:21 Dose: 25 mg Ibuprofen (Ibuprofen 400 Mg Tablet) 400 mg PO Q6H [facility] Last Admin: 02/08/25 08:30 Dose: 400 mg Levothyroxine Sodium (Levothyroxine Sodium 125 Mcg Tablet) 125 mcg PO DAILY@0600 [facility] Last Admin: 02/08/25 08:31 Dose: 125 mcg Loperamide HCl (Loperamide Hcl 2 Mg Capsule) 4 mg PO Q4H PRN PRN Reason: Diarrhea Last Admin: 02/07/25 08:01 Dose: 4 mg Magnesium Hydroxide (Milk Of Magnesia 30 Ml Oral.Susp) 30 ml PO DAILY PRN PRN Reason: Constipation Last Admin: 01/30/25 16:06 Dose: 30 ml Methadone HCl (Methadone Hcl 20 Mg/2 Ml Oral.Conc) 105 mg PO DAILY@0800 [facility] Last Admin: 02/08/25 07:54 Dose: 105 mg Nicotine (Nicotine 21 Mg Patch.Td24) 21 mg TRANSDERMA DAILY PRN PRN Reason: smoking cessation Last Admin: 02/08/25 08:35 Dose: 21 mg Nicotine Polacrilex (Nicotine Polacrilex 2 Mg Gum) 4 mg BUCCAL Q2H PRN PRN Reason: Nicotine Cravings Last Admin: 02/08/25 08:33 Dose: 4 mg Olanzapine (Olanzapine 5 Mg Tablet) 5 mg PO TID PRN PRN Reason: agitation Last Admin: 02/07/25 12:46 Dose: 5 mg Oxcarbazepine (Oxcarbazepine 300 Mg Tablet) 300 mg PO BID [facility] Last Admin: 02/08/25 08:31 Dose: 300 mg Quetiapine Fumarate (Quetiapine Fumarate 50 Mg Tablet) 50 mg PO BEDTIME PRN PRN Reason: Insomnia Last Admin: 02/05/25 21:48 Dose: 50 mg Thiamine HCl (Thiamine Hcl 100 Mg Tablet) 100 mg PO DAILY [facility] Last Admin: 02/08/25 08:31 Dose: 100 mg Trazodone HCl (Trazodone Hcl 50 Mg Tablet) 50 mg PO BEDTIME MRX1 PRN PRN Reason: Insomnia Allergies Allergies Allergy/AdvReac Type Severity Reaction Status Date / Time No Known Allergies Allergy Verified 01/28/25 21:46 Assessment & Plan Assessment & Plan (1) PTSD (post-traumatic stress disorder): Status: Acute Code(s): F43.10 - Post-traumatic stress disorder, unspecified (2) Recurrent major depression: Status: Acute Code(s): F33.9 - Major depressive disorder, recurrent, unspecified (3) Alcohol use disorder, severe, dependence: Status: Acute Code(s): F10.20 - Alcohol dependence, uncomplicated (4) Opioid use disorder, severe, on maintenance therapy: Status: Acute Code(s): F11.20 - Opioid dependence, uncomplicated Plan Admit, CV, 15 minute checks Hospitalist consult-?need for phenobarbital protocol for withdrawal from alcohol Addiction Consult Valium 10 mg tid Ativan 1-3 mg q2 prn alcohol withdrawal BMP, B12,Folate, FBS, TSH, Lipid Panel, A1C Collateral contact Diagnostics as above and prn Encourage full milieu Discharge planning Valium decrease from 20 mg tid to 15 mg tid Ativan prn decrease to 1 mg q 4h prn withdrawal sx. 02/01/25: Continue current plans and regimen . Decrease Valium to 10 mg t.i.d. 02/02: Continue current regimen and plans 02/04: Increase Levothyroxine to 125 mcg daily Decrease Valium to 5 mg tid. Plan to decrease by 5 mg on 02/06. Continue to monitor sedation 02/06: Klonopin ODT prn 1 mg daily Decrease Methadone to 105 mg daily Vraylar 3 mg daily Increase Wellbutrin to 300 mg XL daily 02/07: Continue tx 02/08/25 continue treatment plan Patient educated on: medication risk/benefits and substance abuse Informed Consent: understands Reason for continued inpatient stay Substantial Risk for: rapid decompensation Time Spent With Patient Time: Total time managing care of this patient today ____ minutes.
[2025-02-08] MEDS: Gabapentin 600 MG TABLET PO ×3 (09:41→21:01)
[2025-02-08] MEDS: clonazePAM ODT 0.5 MG TAB.RAPDIS 1 MG PO (14:54)
[2025-02-08] MEDS: hydrOXYzine HCL 25 MG TABLET PO ×2 (14:56→21:02)
[2025-02-08 19:52] VITALS: BP 90/51; PULSE 88; RESP 15; TEMP 36.7; O2SAT 96
[2025-02-09] MEDS: Levothyroxine Sodium 125 MCG TABLET PO (06:41)
[2025-02-09] MEDS: methADONE HCl 20 MG/2 ML ORAL.CONC 105 MG PO (07:38)
[2025-02-09 08:00] VITALS: BP 124/70; PULSE 92; RESP 16; TEMP 36.6; O2SAT 96
[2025-02-09] MEDS: Nicotine 21 MG PATCH.TD24 TRANSDERMA (08:54)
[2025-02-09] MEDS: Emtricitabin/Tenofovir DF 200/300 TABLET 1 TAB PO (08:55)
[2025-02-09] MEDS: Gabapentin 600 MG TABLET PO ×3 (08:55→19:49)
[2025-02-09] MEDS: Thiamine HCL 100 MG TABLET PO (08:55)
[2025-02-09] MEDS: Folic Acid 1 MG TABLET PO (08:55)
[2025-02-09] MEDS: buPROPion HCl XL 300 MG TAB.ER.24H PO (08:55)
[2025-02-09] MEDS: hydrOXYzine HCL 25 MG TABLET PO ×2 (08:55→19:49)
[2025-02-09] MEDS: Cariprazine HCl 3 MG CAPSULE PO (08:55)
[2025-02-09] MEDS: diazePAM 5 MG TABLET PO (08:55)
[2025-02-09] MEDS: cloNIDine HCL 0.1 MG TABLET PO ×2 (08:55→14:28)
[2025-02-09] MEDS: Baclofen 10 MG TABLET 5 MG PO ×3 (08:55→19:48)
[2025-02-09] MEDS: Dicyclomine HCl 10 MG CAPSULE 20 MG PO ×2 (08:55→14:28)
[2025-02-09] MEDS: OXcarbazepine 300 MG TABLET PO ×2 (08:56→19:48)
[2025-02-09] MEDS: OLANZapine 5 MG TABLET PO ×2 (08:56→19:58)
[2025-02-09] MEDS: Ibuprofen 400 MG TABLET PO ×3 (08:56→19:57)
[2025-02-09] MEDS: Nicotine Polacrilex 2 MG GUM 4 MG BUCCAL ×3 (08:56→20:50)
--- NOTE | 2025-02-09 11:40 | HO.PSYCHPN ---
Subjective Subjective Date of Service: 02/09/25 Reason For Visit: depressed/ SI Subjective Notes: Conditional Voluntary Healthcare Proxy: No Guardianship: No Medical Problems Affecting Mental Status: No Interim History: 39 yo continues to look as if nodding off- then became angry with provider for not giving him ritalin- told him he is on wellbutrin and clonidine which both treat adhd - though clonidine was mostly on his med list for withdrawl but... on MAT so likely does not need- at this point- Pt says not suicidal just wants to get on right meds and get on with his life- Medication Compliance: Yes Side effects from medications: Yes (still seems over sedated to this provider) Attending Groups: Intermittent Review of Systems Acute medical concerns: No Medical Review of Systems: unchanged Mental Status Exam Mental Status Exam Patient Appearance: Unkempt Patient Orientation: Person, Place and Situation Level of Consciousness: Drowsy Patient Behavior: Cooperative, Restless and Poor Eye Contact Behavior Comments: angry Mood Description: Angry Affect Description: Blunted Patient Cognition Impaired: No Ability to Follow Directions: Fair Speech Pattern: Slurred Hallucinations: None Delusions: Not Present Thought Process: Intact Thought Content: positive for [place] and positive for Slowed Thinking Depressive Symptoms: Difficulty Concentrating Judgement: Poor Diagnostics Vital Signs (24Hr): Vital Signs - 24 hr 02/08/25 19:52 02/09/25 08:00 Temperature 98.1 F 98 F Pulse Rate 88 92 Respiratory Rate 15 16 Blood Pressure 90/51 L 124/70 Pulse Oximetry 96 96 BMI result Body Mass Index 25.4 Labs 01/28/25 22:54 02/04/25 07:38 Medications Medications Current Medications Acetaminophen (Acetaminophen 325 Mg Tablet) 650 mg PO Q12H PRN PRN Reason: Headache/Pain, Scale 1-10 Al Hydroxide/Mg Hydroxide (Magnesium Hydrox/Alum Hydrox 30 Ml Oral.Susp) 30 ml PO Q6H PRN PRN Reason: Heartburn/Nausea Baclofen (Baclofen 10 Mg Tablet) 5 mg PO TID PRN PRN Reason: withdrawal discomfort Last Admin: 02/09/25 08:55 Dose: 5 mg Bupropion HCl (Bupropion Hcl Xl 300 Mg Tab.Er.24h) 300 mg PO DAILY [facility] Last Admin: 02/09/25 08:55 Dose: 300 mg Cariprazine (Cariprazine Hcl 3 Mg Capsule) 3 mg PO DAILY [facility] Last Admin: 02/09/25 08:55 Dose: 3 mg Clonazepam (Clonazepam Odt 0.5 Mg Tab.Rapdis) 1 mg PO DAILY PRN PRN Reason: panic attacks Last Admin: 02/08/25 14:54 Dose: 1 mg Clonidine HCl (Clonidine Hcl 0.1 Mg Tablet) 0.1 mg PO BID PRN; Protocol PRN Reason: Withdrawal Last Admin: 02/09/25 08:55 Dose: 0.1 mg Diazepam (Diazepam 5 Mg Tablet) 5 mg PO DAILY [facility] Last Admin: 02/09/25 08:55 Dose: 5 mg Dicyclomine HCl (Dicyclomine Hcl 10 Mg Capsule) 20 mg PO BID PRN PRN Reason: Diarrhea Last Admin: 02/09/25 08:55 Dose: 20 mg Emtricitabine/Tenofovir (Emtricitabin/Tenofovir Df 200/300 Tablet) 1 tab PO DAILY [facility] Last Admin: 02/09/25 08:55 Dose: 1 tab Folic Acid (Folic Acid 1 Mg Tablet) 1 mg PO DAILY [facility] Last Admin: 02/09/25 08:55 Dose: 1 mg Gabapentin (Gabapentin 600 Mg Tablet) 600 mg PO TID [facility] Last Admin: 02/09/25 08:55 Dose: 600 mg Hydroxyzine HCl (Hydroxyzine Hcl 25 Mg Tablet) 25 mg PO Q6H PRN PRN Reason: mild anxiety Last Admin: 02/09/25 08:55 Dose: 25 mg Ibuprofen (Ibuprofen 400 Mg Tablet) 400 mg PO Q6H [facility] Last Admin: 02/09/25 08:56 Dose: 400 mg Levothyroxine Sodium (Levothyroxine Sodium 125 Mcg Tablet) 125 mcg PO DAILY@0600 [facility] Last Admin: 02/09/25 06:41 Dose: 125 mcg Loperamide HCl (Loperamide Hcl 2 Mg Capsule) 4 mg PO Q4H PRN PRN Reason: Diarrhea Last Admin: 02/07/25 08:01 Dose: 4 mg Magnesium Hydroxide (Milk Of Magnesia 30 Ml Oral.Susp) 30 ml PO DAILY PRN PRN Reason: Constipation Last Admin: 01/30/25 16:06 Dose: 30 ml Methadone HCl (Methadone Hcl 20 Mg/2 Ml Oral.Conc) 105 mg PO DAILY@0800 [facility] Last Admin: 02/09/25 07:38 Dose: 105 mg Nicotine (Nicotine 21 Mg Patch.Td24) 21 mg TRANSDERMA DAILY PRN PRN Reason: smoking cessation Last Admin: 02/09/25 08:54 Dose: 21 mg Nicotine Polacrilex (Nicotine Polacrilex 2 Mg Gum) 4 mg BUCCAL Q2H PRN PRN Reason: Nicotine Cravings Last Admin: 02/09/25 08:56 Dose: 4 mg Olanzapine (Olanzapine 5 Mg Tablet) 5 mg PO TID PRN PRN Reason: agitation Last Admin: 02/09/25 08:56 Dose: 5 mg Oxcarbazepine (Oxcarbazepine 300 Mg Tablet) 300 mg PO BID [facility] Last Admin: 02/09/25 08:56 Dose: 300 mg Quetiapine Fumarate (Quetiapine Fumarate 50 Mg Tablet) 50 mg PO BEDTIME PRN PRN Reason: Insomnia Last Admin: 02/05/25 21:48 Dose: 50 mg Thiamine HCl (Thiamine Hcl 100 Mg Tablet) 100 mg PO DAILY [facility] Last Admin: 02/09/25 08:55 Dose: 100 mg Trazodone HCl (Trazodone Hcl 50 Mg Tablet) 50 mg PO BEDTIME MRX1 PRN PRN Reason: Insomnia Allergies Allergies Allergy/AdvReac Type Severity Reaction Status Date / Time No Known Allergies Allergy Verified 01/28/25 21:46 Assessment & Plan Assessment & Plan (1) PTSD (post-traumatic stress disorder): Status: Acute Code(s): F43.10 - Post-traumatic stress disorder, unspecified (2) Recurrent major depression: Status: Acute Code(s): F33.9 - Major depressive disorder, recurrent, unspecified (3) Alcohol use disorder, severe, dependence: Status: Acute Code(s): F10.20 - Alcohol dependence, uncomplicated (4) Opioid use disorder, severe, on maintenance therapy: Status: Acute Code(s): F11.20 - Opioid dependence, uncomplicated Plan Admit, CV, 15 minute checks Hospitalist consult-?need for phenobarbital protocol for withdrawal from alcohol Addiction Consult Valium 10 mg tid Ativan 1-3 mg q2 prn alcohol withdrawal BMP, B12,Folate, FBS, TSH, Lipid Panel, A1C Collateral contact Diagnostics as above and prn Encourage full milieu Discharge planning Valium decrease from 20 mg tid to 15 mg tid Ativan prn decrease to 1 mg q 4h prn withdrawal sx. 02/01/25: Continue current plans and regimen . Decrease Valium to 10 mg t.i.d. 02/02: Continue current regimen and plans 02/04: Increase Levothyroxine to 125 mcg daily Decrease Valium to 5 mg tid. Plan to decrease by 5 mg on 02/06. Continue to monitor sedation 02/06: Klonopin ODT prn 1 mg daily Decrease Methadone to 105 mg daily Vraylar 3 mg daily Increase Wellbutrin to 300 mg XL daily 02/07: Continue tx 02/08/25 continue treatment plan 02/09 dec diazepam to 2mg ,dc prn clonidine- continues oversedated and no insight into it- Patient educated on: medication risk/benefits and substance abuse Informed Consent: further education needed Reason for continued inpatient stay Substantial Risk for: inability to function and rapid decompensation Time Spent With Patient Time: Total time managing care of this patient today ____ minutes.
[2025-02-09 14:28] VITALS: BP 130/72
[2025-02-09] MEDS: clonazePAM ODT 0.5 MG TAB.RAPDIS 1 MG PO (14:28)
[2025-02-09 19:02] LABS: Anion Gap 18 (12-20); Carbon Dioxide 23 mmol/L (22-29); Chloride 99 mmol/L (96-108); Potassium 4.7 mmol/L (3.3-5.1); Sodium 135 mmol/L (135-145)
[2025-02-09 19:32] VITALS: BP 109/56; PULSE 70; RESP 15; TEMP 36.6; O2SAT 95
[2025-02-09] MEDS: Dicyclomine HCl 10 MG CAPSULE PO (19:49)
[2025-02-10] MEDS: Levothyroxine Sodium 125 MCG TABLET PO (05:34)
[2025-02-10 07:46] VITALS: BP 125/70; PULSE 76; RESP 18; TEMP 36.3; O2SAT 97
[2025-02-10] MEDS: methADONE HCl 20 MG/2 ML ORAL.CONC 105 MG PO (07:47)
[2025-02-10] MEDS: Emtricitabin/Tenofovir DF 200/300 TABLET 1 TAB PO (08:21)
[2025-02-10] MEDS: OXcarbazepine 300 MG TABLET PO ×2 (08:21→21:21)
[2025-02-10] MEDS: Thiamine HCL 100 MG TABLET PO (08:21)
[2025-02-10] MEDS: diazePAM 2 MG TABLET PO (08:21)
[2025-02-10] MEDS: Cariprazine HCl 3 MG CAPSULE PO (08:21)
[2025-02-10] MEDS: Gabapentin 600 MG TABLET PO ×3 (08:21→21:16)
[2025-02-10] MEDS: Folic Acid 1 MG TABLET PO (08:22)
[2025-02-10] MEDS: buPROPion HCl XL 300 MG TAB.ER.24H PO (08:22)
[2025-02-10] MEDS: clonazePAM ODT 0.5 MG TAB.RAPDIS 1 MG PO (08:26)
[2025-02-10] MEDS: Milk of Magnesia 30 ML ORAL.SUSP PO (10:32)
--- NOTE | 2025-02-10 13:17 | P.PNPSI_ITS ---
Subjective Subjective Date of Service: 02/10/25 Reason For Visit: depressed/ SI Subjective Notes: Conditional Voluntary and 3 Day Healthcare Proxy: No Guardianship: No Medical Problems Affecting Mental Status: No Interim History: Reports feeling prepared for discharge. Tells team there is passive SI. Denies SI/HI/AH/VH to tw. Na 135 Discussed concerns about transportation, OP Provider assignments and changing clinic to [facility]. Reports sleep, appetite are intact. Reports physically feeling well. Medication Compliance: Yes Side effects from medications: No Attending Groups: Intermittent Review of Systems Acute medical concerns: No Review of Systems Review of Systems Denies Mental Status Exam Mental Status Exam Patient Appearance: Appropriate Patient Orientation: Person, Place, Time and Situation Level of Consciousness: Alert Patient Behavior: Talkative and Good Eye Contact Mood Description: Anxious Affect Description: Anxious Patient Cognition Impaired: No Ability to Follow Directions: Good Speech Pattern: Spontaneous Speech Memory Description: Episodic Impaired Hallucinations: None Delusions: Not Present Thought Process: Goal Oriented Thought Content: positive for Goal Oriented and positive for Suicidal Ideation (denies) Depressive Symptoms: Increased Anxiety Judgement: Good Diagnostics Vital Signs (24Hr): Vital Signs - 24 hr 02/09/25 14:28 02/09/25 19:32 02/10/25 07:46 Temperature 98 F 97.3 F Pulse Rate 70 76 Respiratory Rate 15 18 Blood Pressure 130/72 109/56 L 125/70 Pulse Oximetry 95 97 Oxygen Delivery Method Room Air BMI result Body Mass Index 25.4 Labs 01/28/25 22:54 02/09/25 18:39 Labs: Laboratory Results - last 48 hr 02/09/25 18:39 Sodium 135 Potassium 4.7 Chloride 99 Carbon Dioxide 23 Anion Gap 18 Medications Medications Current Medications Acetaminophen (Acetaminophen 325 Mg Tablet) 650 mg PO Q12H PRN PRN Reason: Headache/Pain, Scale 1-10 Al Hydroxide/Mg Hydroxide (Magnesium Hydrox/Alum Hydrox 30 Ml Oral.Susp) 30 ml PO Q6H PRN PRN Reason: Heartburn/Nausea Baclofen (Baclofen 10 Mg Tablet) 5 mg PO TID PRN PRN Reason: withdrawal discomfort Last Admin: 02/09/25 19:48 Dose: 5 mg Bupropion HCl (Bupropion Hcl Xl 300 Mg Tab.Er.24h) 300 mg PO DAILY [facility] Last Admin: 02/10/25 08:22 Dose: 300 mg Cariprazine (Cariprazine Hcl 3 Mg Capsule) 3 mg PO DAILY [facility] Last Admin: 02/10/25 08:21 Dose: 3 mg Clonazepam (Clonazepam Odt 0.5 Mg Tab.Rapdis) 1 mg PO DAILY PRN PRN Reason: panic attacks Last Admin: 02/10/25 08:26 Dose: 1 mg Diazepam (Diazepam 2 Mg Tablet) 2 mg PO DAILY [facility] Last Admin: 02/10/25 08:21 Dose: 2 mg Dicyclomine HCl (Dicyclomine Hcl 10 Mg Capsule) 10 mg PO BID PRN PRN Reason: Diarrhea Last Admin: 02/09/25 19:49 Dose: 10 mg Emtricitabine/Tenofovir (Emtricitabin/Tenofovir Df 200/300 Tablet) 1 tab PO DAILY [facility] Last Admin: 02/10/25 08:21 Dose: 1 tab Folic Acid (Folic Acid 1 Mg Tablet) 1 mg PO DAILY [facility] Last Admin: 02/10/25 08:22 Dose: 1 mg Gabapentin (Gabapentin 600 Mg Tablet) 600 mg PO TID [facility] Last Admin: 02/10/25 08:21 Dose: 600 mg Hydroxyzine HCl (Hydroxyzine Hcl 25 Mg Tablet) 25 mg PO Q6H PRN PRN Reason: mild anxiety Last Admin: 02/09/25 19:49 Dose: 25 mg Ibuprofen (Ibuprofen 400 Mg Tablet) 400 mg PO Q6H [facility] Last Admin: 02/10/25 08:39 Dose: Not Given Levothyroxine Sodium (Levothyroxine Sodium 125 Mcg Tablet) 125 mcg PO DAILY@0600 [facility] Last Admin: 02/10/25 05:34 Dose: 125 mcg Loperamide HCl (Loperamide Hcl 2 Mg Capsule) 4 mg PO Q4H PRN PRN Reason: Diarrhea Last Admin: 02/07/25 08:01 Dose: 4 mg Magnesium Hydroxide (Milk Of Magnesia 30 Ml Oral.Susp) 30 ml PO DAILY PRN PRN Reason: Constipation Last Admin: 02/10/25 10:32 Dose: 30 ml Methadone HCl (Methadone Hcl 20 Mg/2 Ml Oral.Conc) 105 mg PO DAILY@0800 [facility] Last Admin: 02/10/25 07:47 Dose: 105 mg Nicotine (Nicotine 21 Mg Patch.Td24) 21 mg TRANSDERMA DAILY PRN PRN Reason: smoking cessation Last Admin: 02/09/25 08:54 Dose: 21 mg Nicotine Polacrilex (Nicotine Polacrilex 2 Mg Gum) 4 mg BUCCAL Q2H PRN PRN Reason: Nicotine Cravings Last Admin: 02/09/25 20:50 Dose: 4 mg Olanzapine (Olanzapine 5 Mg Tablet) 5 mg PO TID PRN PRN Reason: agitation Last Admin: 02/09/25 19:58 Dose: 5 mg Oxcarbazepine (Oxcarbazepine 300 Mg Tablet) 300 mg PO BID [facility] Last Admin: 02/10/25 08:21 Dose: 300 mg Quetiapine Fumarate (Quetiapine Fumarate 50 Mg Tablet) 50 mg PO BEDTIME PRN PRN Reason: Insomnia Last Admin: 02/05/25 21:48 Dose: 50 mg Thiamine HCl (Thiamine Hcl 100 Mg Tablet) 100 mg PO DAILY [facility] Last Admin: 02/10/25 08:21 Dose: 100 mg Trazodone HCl (Trazodone Hcl 50 Mg Tablet) 50 mg PO BEDTIME MRX1 PRN PRN Reason: Insomnia Allergies Allergies Allergy/AdvReac Type Severity Reaction Status Date / Time No Known Allergies Allergy Verified 01/28/25 21:46 Assessment & Plan Assessment & Plan (1) PTSD (post-traumatic stress disorder): Status: Acute Code(s): F43.10 - Post-traumatic stress disorder, unspecified (2) Recurrent major depression: Status: Acute Code(s): F33.9 - Major depressive disorder, recurrent, unspecified (3) Alcohol use disorder, severe, dependence: Status: Acute Code(s): F10.20 - Alcohol dependence, uncomplicated (4) Opioid use disorder, severe, on maintenance therapy: Status: Acute Code(s): F11.20 - Opioid dependence, uncomplicated Plan Admit, CV, 15 minute checks Hospitalist consult-?need for phenobarbital protocol for withdrawal from alcohol Addiction Consult Valium 10 mg tid Ativan 1-3 mg q2 prn alcohol withdrawal BMP, B12,Folate, FBS, TSH, Lipid Panel, A1C Collateral contact Diagnostics as above and prn Encourage full milieu Discharge planning Valium decrease from 20 mg tid to 15 mg tid Ativan prn decrease to 1 mg q 4h prn withdrawal sx. 02/01/25: Continue current plans and regimen . Decrease Valium to 10 mg t.i.d. 02/02: Continue current regimen and plans 02/04: Increase Levothyroxine to 125 mcg daily Decrease Valium to 5 mg tid. Plan to decrease by 5 mg on 02/06. Continue to monitor sedation 02/06: Klonopin ODT prn 1 mg daily Decrease Methadone to 105 mg daily Vraylar 3 mg daily Increase Wellbutrin to 300 mg XL daily 02/07: Continue tx 02/08/25 continue treatment plan 02/09 dec diazepam to 2mg ,dc prn clonidine- continues oversedated and no insight into it- 02/10 prepare for discharge Reason for continued inpatient stay Substantial Risk for: rapid decompensation Time Spent With Patient Time: Total time managing care of this patient today ____ minutes.
[2025-02-10] MEDS: Ibuprofen 400 MG TABLET PO ×2 (14:36→21:18)
[2025-02-10] MEDS: Baclofen 10 MG TABLET 5 MG PO ×2 (14:39→21:19)
[2025-02-10] MEDS: Dicyclomine HCl 10 MG CAPSULE PO (14:39)
[2025-02-10] MEDS: OLANZapine 5 MG TABLET PO ×2 (14:39→21:18)
[2025-02-10] MEDS: hydrOXYzine HCL 25 MG TABLET PO (14:39)
[2025-02-10] MEDS: Nicotine Polacrilex 2 MG GUM 4 MG BUCCAL ×2 (16:09→21:20)
[2025-02-11] MEDS: Levothyroxine Sodium 125 MCG TABLET PO (06:25)
[2025-02-11 08:00] VITALS: BP 118/75; PULSE 80; RESP 18; TEMP 36.1; O2SAT 97
[2025-02-11] MEDS: methADONE HCl 20 MG/2 ML ORAL.CONC 105 MG PO (08:07)
[2025-02-11] MEDS: Nicotine 21 MG PATCH.TD24 TRANSDERMA (08:57)
[2025-02-11] MEDS: Emtricitabin/Tenofovir DF 200/300 TABLET 1 TAB PO (08:58)
[2025-02-11] MEDS: Gabapentin 600 MG TABLET PO ×3 (08:58→21:21)
[2025-02-11] MEDS: Thiamine HCL 100 MG TABLET PO (08:58)
[2025-02-11] MEDS: OXcarbazepine 300 MG TABLET PO ×2 (08:58→21:21)
[2025-02-11] MEDS: Cariprazine HCl 3 MG CAPSULE PO (08:58)
[2025-02-11] MEDS: buPROPion HCl XL 300 MG TAB.ER.24H PO (08:58)
[2025-02-11] MEDS: Folic Acid 1 MG TABLET PO (08:58)
[2025-02-11] MEDS: Ibuprofen 400 MG TABLET PO ×3 (08:58→21:21)
[2025-02-11] MEDS: diazePAM 2 MG TABLET PO (08:59)
[2025-02-11] MEDS: hydrOXYzine HCL 25 MG TABLET PO ×3 (09:10→21:27)
[2025-02-11] MEDS: Nicotine Polacrilex 2 MG GUM 4 MG BUCCAL (09:11)
[2025-02-11] MEDS: Baclofen 10 MG TABLET 5 MG PO ×3 (09:11→21:26)
[2025-02-11] MEDS: clonazePAM ODT 0.5 MG TAB.RAPDIS 1 MG PO (10:27)
[2025-02-11] MEDS: OLANZapine 5 MG TABLET PO ×2 (12:06→21:27)
--- NOTE | 2025-02-11 16:36 | P.PNPSI_ITS ---
Subjective Subjective Date of Service: 02/11/25 Reason For Visit: depressed/ SI Subjective Notes: Conditional Voluntary Healthcare Proxy: No Guardianship: No Medical Problems Affecting Mental Status: No Interim History: Denies SI,HI,AH,VH Med review for discharge Believes Hannah is beginning to work, I feel good, like I can go to group and talk with people. Prepared for discharge Questions addressed Micco today from his OP clinic that 2 of his friends have of overdoses while pt was hospitalized. I have a chance to stay clean, I want to use this chance. Medication Compliance: Yes Side effects from medications: No Attending Groups: Yes Review of Systems Acute medical concerns: No Medical Review of Systems: unchanged Review of Systems Review of Systems Denies Mental Status Exam Mental Status Exam Patient Appearance: Appropriate Patient Orientation: Person, Place, Time and Situation Level of Consciousness: Alert Patient Behavior: Talkative and Good Eye Contact Mood Description: Anxious Affect Description: Anxious Patient Cognition Impaired: No Ability to Follow Directions: Good Speech Pattern: Spontaneous Speech Memory Description: Episodic Impaired Hallucinations: None Delusions: Not Present Thought Process: Goal Oriented Thought Content: positive for Goal Oriented and positive for Suicidal Ideation (denies) Depressive Symptoms: Increased Anxiety Judgement: Good Diagnostics Vital Signs (24Hr): Vital Signs - 24 hr 02/11/25 08:00 Temperature 96.9 F Pulse Rate 80 Respiratory Rate 18 Blood Pressure 118/75 Pulse Oximetry 97 Oxygen Delivery Method Room Air BMI result Body Mass Index 25.4 Labs 01/28/25 22:54 02/09/25 18:39 Labs: Laboratory Results - last 48 hr 02/09/25 18:39 Sodium 135 Potassium 4.7 Chloride 99 Carbon Dioxide 23 Anion Gap 18 Medications Medications Current Medications Acetaminophen (Acetaminophen 325 Mg Tablet) 650 mg PO Q12H PRN PRN Reason: Headache/Pain, Scale 1-10 Al Hydroxide/Mg Hydroxide (Magnesium Hydrox/Alum Hydrox 30 Ml Oral.Susp) 30 ml PO Q6H PRN PRN Reason: Heartburn/Nausea Baclofen (Baclofen 10 Mg Tablet) 5 mg PO TID PRN PRN Reason: withdrawal discomfort Last Admin: 02/11/25 15:00 Dose: 5 mg Bupropion HCl (Bupropion Hcl Xl 300 Mg Tab.Er.24h) 300 mg PO DAILY [facility] Last Admin: 02/11/25 08:58 Dose: 300 mg Cariprazine (Cariprazine Hcl 3 Mg Capsule) 3 mg PO DAILY [facility] Last Admin: 02/11/25 08:58 Dose: 3 mg Clonazepam (Clonazepam Odt 0.5 Mg Tab.Rapdis) 1 mg PO DAILY PRN PRN Reason: panic attacks Last Admin: 02/11/25 10:27 Dose: 1 mg Diazepam (Diazepam 2 Mg Tablet) 2 mg PO DAILY [facility] Last Admin: 02/11/25 08:59 Dose: 2 mg Dicyclomine HCl (Dicyclomine Hcl 10 Mg Capsule) 10 mg PO BID PRN PRN Reason: Diarrhea Last Admin: 02/10/25 14:39 Dose: 10 mg Emtricitabine/Tenofovir (Emtricitabin/Tenofovir Df 200/300 Tablet) 1 tab PO DAILY [facility] Last Admin: 02/11/25 08:58 Dose: 1 tab Folic Acid (Folic Acid 1 Mg Tablet) 1 mg PO DAILY [facility] Last Admin: 02/11/25 08:58 Dose: 1 mg Gabapentin (Gabapentin 600 Mg Tablet) 600 mg PO TID [facility] Last Admin: 02/11/25 14:58 Dose: 600 mg Hydroxyzine HCl (Hydroxyzine Hcl 25 Mg Tablet) 25 mg PO Q6H PRN PRN Reason: mild anxiety Last Admin: 02/11/25 15:00 Dose: 25 mg Ibuprofen (Ibuprofen 400 Mg Tablet) 400 mg PO Q6H [facility] Last Admin: 02/11/25 14:58 Dose: 400 mg Levothyroxine Sodium (Levothyroxine Sodium 125 Mcg Tablet) 125 mcg PO DAILY@0600 [facility] Last Admin: 02/11/25 06:25 Dose: 125 mcg Loperamide HCl (Loperamide Hcl 2 Mg Capsule) 4 mg PO Q4H PRN PRN Reason: Diarrhea Last Admin: 02/07/25 08:01 Dose: 4 mg Magnesium Hydroxide (Milk Of Magnesia 30 Ml Oral.Susp) 30 ml PO DAILY PRN PRN Reason: Constipation Last Admin: 02/10/25 10:32 Dose: 30 ml Methadone HCl (Methadone Hcl 20 Mg/2 Ml Oral.Conc) 105 mg PO DAILY@0800 [facility] Last Admin: 02/11/25 08:07 Dose: 105 mg Nicotine (Nicotine 21 Mg Patch.Td24) 21 mg TRANSDERMA DAILY PRN PRN Reason: smoking cessation Last Admin: 02/11/25 08:57 Dose: 21 mg Nicotine Polacrilex (Nicotine Polacrilex 2 Mg Gum) 4 mg BUCCAL Q2H PRN PRN Reason: Nicotine Cravings Last Admin: 02/11/25 09:11 Dose: 4 mg Olanzapine (Olanzapine 5 Mg Tablet) 5 mg PO TID PRN PRN Reason: agitation Last Admin: 02/11/25 12:06 Dose: 5 mg Oxcarbazepine (Oxcarbazepine 300 Mg Tablet) 300 mg PO BID [facility] Last Admin: 02/11/25 08:58 Dose: 300 mg Quetiapine Fumarate (Quetiapine Fumarate 50 Mg Tablet) 50 mg PO BEDTIME PRN PRN Reason: Insomnia Last Admin: 02/05/25 21:48 Dose: 50 mg Thiamine HCl (Thiamine Hcl 100 Mg Tablet) 100 mg PO DAILY [facility] Last Admin: 02/11/25 08:58 Dose: 100 mg Trazodone HCl (Trazodone Hcl 50 Mg Tablet) 50 mg PO BEDTIME MRX1 PRN PRN Reason: Insomnia Allergies Allergies Allergy/AdvReac Type Severity Reaction Status Date / Time No Known Allergies Allergy Verified 01/28/25 21:46 Assessment & Plan Assessment & Plan (1) PTSD (post-traumatic stress disorder): Status: Acute Code(s): F43.10 - Post-traumatic stress disorder, unspecified (2) Recurrent major depression: Status: Acute Code(s): F33.9 - Major depressive disorder, recurrent, unspecified (3) Alcohol use disorder, severe, dependence: Status: Acute Code(s): F10.20 - Alcohol dependence, uncomplicated (4) Opioid use disorder, severe, on maintenance therapy: Status: Acute Code(s): F11.20 - Opioid dependence, uncomplicated Plan Admit, CV, 15 minute checks Hospitalist consult-?need for phenobarbital protocol for withdrawal from alcohol Addiction Consult Valium 10 mg tid Ativan 1-3 mg q2 prn alcohol withdrawal BMP, B12,Folate, FBS, TSH, Lipid Panel, A1C Collateral contact Diagnostics as above and prn Encourage full milieu Discharge planning Valium decrease from 20 mg tid to 15 mg tid Ativan prn decrease to 1 mg q 4h prn withdrawal sx. 02/01/25: Continue current plans and regimen . Decrease Valium to 10 mg t.i.d. 02/02: Continue current regimen and plans 02/04: Increase Levothyroxine to 125 mcg daily Decrease Valium to 5 mg tid. Plan to decrease by 5 mg on 02/06. Continue to monitor sedation 02/06: Klonopin ODT prn 1 mg daily Decrease Methadone to 105 mg daily Vraylar 3 mg daily Increase Wellbutrin to 300 mg XL daily 02/07: Continue tx 02/08/25 continue treatment plan 02/09 dec diazepam to 2mg ,dc prn clonidine- continues oversedated and no insight into it- 02/11-DC 02/12. TDN Reason for continued inpatient stay Substantial Risk for: rapid decompensation Time Spent With Patient Time: Total time managing care of this patient today ____ minutes.
[2025-02-11 20:00] VITALS: BP 105/58; PULSE 80; TEMP 36.1; O2SAT 93
[2025-02-12] MEDS: Levothyroxine Sodium 125 MCG TABLET PO (06:21)
[2025-02-12] MEDS: methADONE HCl 20 MG/2 ML ORAL.CONC 105 MG PO (07:47)
[2025-02-12 08:14] VITALS: RESP 66; TEMP 36.3; O2SAT 95
[2025-02-12] MEDS: Ibuprofen 400 MG TABLET PO (08:26)
[2025-02-12] MEDS: Cariprazine HCl 3 MG CAPSULE PO (08:27)
[2025-02-12] MEDS: Emtricitabin/Tenofovir DF 200/300 TABLET 1 TAB PO (08:27)
[2025-02-12] MEDS: buPROPion HCl XL 300 MG TAB.ER.24H PO (08:27)
[2025-02-12] MEDS: Gabapentin 600 MG TABLET PO (08:27)
[2025-02-12] MEDS: OXcarbazepine 300 MG TABLET PO (08:28)
[2025-02-12] MEDS: Folic Acid 1 MG TABLET PO (08:28)
[2025-02-12] MEDS: Thiamine HCL 100 MG TABLET PO (08:28)
[2025-02-12] MEDS: diazePAM 2 MG TABLET PO (08:28)
[2025-02-12] MEDS: clonazePAM ODT 0.5 MG TAB.RAPDIS 1 MG PO (08:35)
[2025-02-12] MEDS: Nicotine 21 MG PATCH.TD24 TRANSDERMA (09:16)
[2025-02-12] MEDS: Nicotine Polacrilex 2 MG GUM 4 MG BUCCAL (09:16)
--- NOTE | 2025-02-12 09:52 | HO.PSYCHPN ---
Subjective Subjective Date of Service: 02/12/25 Reason For Visit: depressed/ SI Subjective Notes: Conditional Voluntary Healthcare Proxy: No Guardianship: No Medical Problems Affecting Mental Status: No Interim History: Pt reports he is prepared for discharge. Denies SI,HI,AH,VH No sx of acute rachell or psychosis. Reviewed admission, medicines, difficult detox pt experienced. Has strong community resources in [place] he has been talking with today and is confident he will have a [facility] placement which meets his needs. Medication Compliance: Yes Side effects from medications: No Attending Groups: Intermittent Review of Systems Acute medical concerns: No Medical Review of Systems: unchanged Review of Systems Review of Systems Denies today Mental Status Exam Mental Status Exam Patient Appearance: Appropriate Patient Orientation: Person, Place, Time and Situation Level of Consciousness: Alert Patient Behavior: Talkative and Good Eye Contact Mood Description: Anxious Affect Description: Anxious Patient Cognition Impaired: No Ability to Follow Directions: Good Speech Pattern: Spontaneous Speech Memory Description: Episodic Impaired Hallucinations: None Delusions: Not Present Thought Process: Goal Oriented Thought Content: positive for Goal Oriented and positive for Suicidal Ideation (denies) Depressive Symptoms: Increased Anxiety Judgement: Good Diagnostics Vital Signs (24Hr): Vital Signs - 24 hr 02/11/25 20:00 02/12/25 08:14 Temperature 96.9 F 97.4 F Pulse Rate 80 Respiratory Rate 66 H Blood Pressure 105/58 L Pulse Oximetry 93 95 Oxygen Delivery Method Room Air Room Air BMI result Body Mass Index 25.4 Labs 01/28/25 22:54 02/09/25 18:39 Medications Medications Current Medications Acetaminophen (Acetaminophen 325 Mg Tablet) 650 mg PO Q12H PRN PRN Reason: Headache/Pain, Scale 1-10 Al Hydroxide/Mg Hydroxide (Magnesium Hydrox/Alum Hydrox 30 Ml Oral.Susp) 30 ml PO Q6H PRN PRN Reason: Heartburn/Nausea Baclofen (Baclofen 10 Mg Tablet) 5 mg PO TID PRN PRN Reason: withdrawal discomfort Last Admin: 02/11/25 21:26 Dose: 5 mg Bupropion HCl (Bupropion Hcl Xl 300 Mg Tab.Er.24h) 300 mg PO DAILY [facility] Last Admin: 02/12/25 08:27 Dose: 300 mg Cariprazine (Cariprazine Hcl 3 Mg Capsule) 3 mg PO DAILY [facility] Last Admin: 02/12/25 08:27 Dose: 3 mg Clonazepam (Clonazepam Odt 0.5 Mg Tab.Rapdis) 1 mg PO DAILY PRN PRN Reason: panic attacks Last Admin: 02/12/25 08:35 Dose: 1 mg Diazepam (Diazepam 2 Mg Tablet) 2 mg PO DAILY [facility] Last Admin: 02/12/25 08:28 Dose: 2 mg Dicyclomine HCl (Dicyclomine Hcl 10 Mg Capsule) 10 mg PO BID PRN PRN Reason: Diarrhea Last Admin: 02/10/25 14:39 Dose: 10 mg Emtricitabine/Tenofovir (Emtricitabin/Tenofovir Df 200/300 Tablet) 1 tab PO DAILY [facility] Last Admin: 02/12/25 08:27 Dose: 1 tab Folic Acid (Folic Acid 1 Mg Tablet) 1 mg PO DAILY [facility] Last Admin: 02/12/25 08:28 Dose: 1 mg Gabapentin (Gabapentin 600 Mg Tablet) 600 mg PO TID [facility] Last Admin: 02/12/25 08:27 Dose: 600 mg Hydroxyzine HCl (Hydroxyzine Hcl 25 Mg Tablet) 25 mg PO Q6H PRN PRN Reason: mild anxiety Last Admin: 02/11/25 21:27 Dose: 25 mg Ibuprofen (Ibuprofen 400 Mg Tablet) 400 mg PO Q6H [facility] Last Admin: 02/12/25 08:26 Dose: 400 mg Levothyroxine Sodium (Levothyroxine Sodium 125 Mcg Tablet) 125 mcg PO DAILY@0600 [facility] Last Admin: 02/12/25 06:21 Dose: 125 mcg Loperamide HCl (Loperamide Hcl 2 Mg Capsule) 4 mg PO Q4H PRN PRN Reason: Diarrhea Last Admin: 02/07/25 08:01 Dose: 4 mg Magnesium Hydroxide (Milk Of Magnesia 30 Ml Oral.Susp) 30 ml PO DAILY PRN PRN Reason: Constipation Last Admin: 02/10/25 10:32 Dose: 30 ml Methadone HCl (Methadone Hcl 20 Mg/2 Ml Oral.Conc) 105 mg PO DAILY@0800 [facility] Last Admin: 02/12/25 07:47 Dose: 105 mg Nicotine (Nicotine 21 Mg Patch.Td24) 21 mg TRANSDERMA DAILY PRN PRN Reason: smoking cessation Last Admin: 02/12/25 09:16 Dose: 21 mg Nicotine Polacrilex (Nicotine Polacrilex 2 Mg Gum) 4 mg BUCCAL Q2H PRN PRN Reason: Nicotine Cravings Last Admin: 02/12/25 09:16 Dose: 4 mg Olanzapine (Olanzapine 5 Mg Tablet) 5 mg PO TID PRN PRN Reason: agitation Last Admin: 02/11/25 21:27 Dose: 5 mg Oxcarbazepine (Oxcarbazepine 300 Mg Tablet) 300 mg PO BID [facility] Last Admin: 02/12/25 08:28 Dose: 300 mg Quetiapine Fumarate (Quetiapine Fumarate 50 Mg Tablet) 50 mg PO BEDTIME PRN PRN Reason: Insomnia Last Admin: 02/05/25 21:48 Dose: 50 mg Thiamine HCl (Thiamine Hcl 100 Mg Tablet) 100 mg PO DAILY [facility] Last Admin: 02/12/25 08:28 Dose: 100 mg Trazodone HCl (Trazodone Hcl 50 Mg Tablet) 50 mg PO BEDTIME MRX1 PRN PRN Reason: Insomnia Allergies Allergies Allergy/AdvReac Type Severity Reaction Status Date / Time No Known Allergies Allergy Verified 01/28/25 21:46 Assessment & Plan Assessment & Plan (1) PTSD (post-traumatic stress disorder): Status: Acute Code(s): F43.10 - Post-traumatic stress disorder, unspecified (2) Recurrent major depression: Status: Acute Code(s): F33.9 - Major depressive disorder, recurrent, unspecified (3) Alcohol use disorder, severe, dependence: Status: Acute Code(s): F10.20 - Alcohol dependence, uncomplicated (4) Opioid use disorder, severe, on maintenance therapy: Status: Acute Code(s): F11.20 - Opioid dependence, uncomplicated Plan Admit, CV, 15 minute checks Hospitalist consult-?need for phenobarbital protocol for withdrawal from alcohol Addiction Consult Valium 10 mg tid Ativan 1-3 mg q2 prn alcohol withdrawal BMP, B12,Folate, FBS, TSH, Lipid Panel, A1C Collateral contact Diagnostics as above and prn Encourage full milieu Discharge planning Valium decrease from 20 mg tid to 15 mg tid Ativan prn decrease to 1 mg q 4h prn withdrawal sx. 02/01/25: Continue current plans and regimen . Decrease Valium to 10 mg t.i.d. 02/02: Continue current regimen and plans 02/04: Increase Levothyroxine to 125 mcg daily Decrease Valium to 5 mg tid. Plan to decrease by 5 mg on 02/06. Continue to monitor sedation 02/06: Klonopin ODT prn 1 mg daily Decrease Methadone to 105 mg daily Vraylar 3 mg daily Increase Wellbutrin to 300 mg XL daily 02/07: Continue tx 02/08/25 continue treatment plan 02/09 dec diazepam to 2mg ,dc prn clonidine- continues oversedated and no insight into it- 02/11-DC 02/12. TDN 02/12-discharge today Reason for continued inpatient stay Substantial Risk for: stable for discharge Time Spent With Patient Time: Total time managing care of this patient today ____ minutes.
--- NOTE | 2025-02-23 17:07 | PM.PSYDC ---
DS: Providers Provider Date of Service: 02/12/25 Date of admission: 01/29/25 13:22 Date of discharge: 02/12/25 Primary care physician: Nonstaff Physician Admitting clinician: Isabel Mcintyre Attending physician on admission: Baldemar Mauricio Consults: 01/30/25 09:56 Addiction Medicine Provider Routine Consulting Provider: Addiction Covering Reason for consultation: opiate withdrawal Has provider been notified: No 01/30/25 14:23 Consult to Hospitalist Routine Comment: Consulting Provider: [facility] [place] [facility] Reason For Exam: Alcohol Detox, Valium/Ativan,?Phenobarbital need Attending physician on discharge: Baldemar Mauricio Discharging clinician: Isabel Mcintyre DS: Diagnosis Discharge Diagnosis (1) PTSD (post-traumatic stress disorder): Status: Acute (2) Recurrent major depression: Status: Acute (3) Alcohol use disorder, severe, dependence: Status: Acute (4) Opioid use disorder, severe, on maintenance therapy: Status: Acute DS: Medications Discharge Medications Home Medications: Previous Rx's ?Medication ?Instructions ?Recorded bupropion HCl 300 mg 24 hr tablet, 300 mg PO DAILY #30 tabs 02/11/25 extended release cariprazine 3 mg capsule (Vraylar) 3 mg PO DAILY #30 caps 02/11/25 clonazepam 0.5 mg disintegrating 1 mg (2 x 0.5 mg) PO DAILY PRN 02/11/25 tablet panic attacks #7 tabs emtricitabine 200 mg-tenofovir 1 tab PO DAILY #30 tabs 02/11/25 disoproxil fumarate 300 mg tablet folic acid 1 mg tablet 1 mg PO DAILY #30 tabs 02/11/25 gabapentin 600 mg tablet 600 mg PO 3XD PRN Pain #45 tabs 02/11/25 hydroxyzine HCl 25 mg tablet 25 mg PO BID PRN Anxiety #30 tabs 02/11/25 ibuprofen 400 mg tablet 400 mg PO Q6H #0 tabs 02/11/25 levothyroxine 125 mcg tablet 125 mcg PO DAILY@0600 #30 tabs 02/11/25 methadone 10 mg/mL oral 105 mg (10.5 mL) PO DAILY@0800 #0 02/11/25 concentrate (Methadose) mL naloxone 4 mg/actuation nasal 4 mg intranasal Q2M PRN opioid 02/11/25 spray (Narcan) overdose #2 ea nicotine (polacrilex) 2 mg gum 4 mg buccal Q2H PRN Nicotine 02/11/25 Cravings #100 ea nicotine 21 mg/24 hr daily 21 mg transdermal DAILY PRN 02/11/25 transdermal patch smoking cessation #30 ea oxcarbazepine 300 mg tablet 300 mg PO BID #6 tabs 02/11/25 quetiapine 50 mg tablet 50 mg PO BEDTIME PRN Insomnia #15 02/11/25 tabs thiamine mononitrate (vit B1) 100 100 mg PO DAILY #30 tabs 02/11/25 mg tablet Mental Status Exam Mental Status Exam Patient Appearance: Appropriate Patient Orientation: Person, Place, Time and Situation Level of Consciousness: Alert Patient Behavior: Talkative and Good Eye Contact Mood Description: Anxious Affect Description: Anxious Patient Cognition Impaired: No Ability to Follow Directions: Good Speech Pattern: Spontaneous Speech Memory Description: Episodic Impaired Hallucinations: None Delusions: Not Present Thought Process: Goal Oriented Thought Content: positive for Goal Oriented and positive for Suicidal Ideation (denies) Depressive Symptoms: Increased Anxiety Judgement: Good DS: Summary Hospital Course Hospital Course: Admission to adult psychiatry for exacerbation of PTSD, recurrent major depression, opiate use disorder and alcohol use disorder. Pt was s/p OD of fentanyl. Detox for pt was difficult, however without adverse event. Medications were evaluated and adjusted. Vraylar was started with pt reporting a positive effect on mood. Pt was offered ongoing treatment, however chose to return to his home area and providers. He will proceed with group home placement in this area and has resources for treatment and ongoing support. Status at Discharge Functional status at discharge: independent ambulation Overall status at discharge: patient is progressing back to baseline Time Spent with Patient Time attestation: Total time managing care of this patient today ____ minutes. Time spent: Less than 30 minutes Discharge Plan Discharge Anticipated Discharge Date/Time: 02/12/25 12:00 Patient Disposition: Senior Living Discharge Diagnosis: PTSD Recurrent Major Depression Alcohol use disorder Opiate Use Disorder-methadone maintenance Referrals: [facility] [Other] - 1 Week (A referral was placed on your behalf, if you do not hear from [facility] within 1 week please call the provided number or go to the walk in hours listed below Walk-in hours Monday-Monday, 7:30am - 7:30pm Monday & Monday, 9:00am-5:00pm ) [facility] [Other] - 02/13/25 9:00 am (Please bring your photo ID, last dose letter, medications and insurance card with you for your appointment ) Physician,Cesilia [Primary Care Provider] - 1 Week Discharge Medications: New nicotine (polacrilex) 2 mg Gum 4 mg buccal Q2H PRN (Reason: Nicotine Cravings) Qty: 100 0RF nicotine 21 mg/24 hr Patch 24 Hour 21 mg transdermal DAILY PRN (Reason: smoking cessation) Qty: 30 0RF bupropion HCl 300 mg Tablet Extended Release 24 Hr 300 mg PO DAILY Qty: 30 0RF Vraylar 3 mg Capsule 3 mg PO DAILY Qty: 30 0RF levothyroxine 125 mcg Tablet 125 mcg PO DAILY@0600 Qty: 30 0RF ibuprofen 400 mg Tablet 400 mg PO Q6H Qty: 0 0RF folic acid 1 mg Tablet 1 mg PO DAILY Qty: 30 0RF methadone [Methadose] 10 mg/mL Concentrate 105 mg PO DAILY@0800 Qty: 0 0RF Rx Instructions: Partial Fill upon patient request. clonazepam 0.5 mg Tablet,Disintegrating 1 mg PO DAILY PRN (Reason: panic attacks) Qty: 7 4RF thiamine mononitrate (vit B1) 100 mg Tablet 100 mg PO DAILY Qty: 30 0RF naloxone [Narcan] 4 mg/actuation spray,non-aerosol 4 mg intranasal Q2M PRN (Reason: opioid overdose) Qty: 2 0RF Rx Instructions: spray 1 dose into ONE nostril; alternate nostrils w each dose until help arrives Continued hydroxyzine HCl 25 mg tablet 25 mg PO BID PRN (Reason: Anxiety) Qty: 30 1RF emtricitabine-tenofovir (TDF) 200-300 mg tablet 1 tab PO DAILY Qty: 30 0RF quetiapine 50 mg tablet 50 mg PO BEDTIME PRN (Reason: Insomnia) Qty: 15 1RF gabapentin 600 mg tablet 600 mg PO 3XD PRN (Reason: Pain) Qty: 45 1RF oxcarbazepine 300 mg tablet 300 mg PO BID Qty: 6 0RF Discontinued methadone 110 mg PO DAILY clonidine HCl 0.1 mg tablet 0.1 mg PO BID PRN (Reason: Insomnia) levothyroxine 100 mcg tablet 100 mcg PO DAILY nicotine (polacrilex) 4 mg gum 4 mg PO QID PRN (Reason: Nicotine Cravings) dicyclomine 20 mg tablet 20 mg PO BID PRN (Reason: Diarrhea) baclofen 10 mg tablet 10 mg PO 3XD PRN (Reason: Pain) ibuprofen 600 mg tablet 600 mg PO 3XD PRN (Reason: Pain) bupropion HCl 150 mg tablet extended release 24 hr 150 mg PO DAILY Discharge Orders: Discharge Order (Routine); Ordered 02/12/25 Ordered By: Isabel Mcintyre Diet: Advance to usual diet Activity on Discharge: As tolerated Stand Alone Forms: Patient Portal Discharge page, Community Support Print Language: Bengali Care Plan Goals: Abstinence from Substances Mood and Behavioral Stabilization Health Concerns: Abstinence from Substances Mood and Behavioral Stabilization Plan of Treatment: Attend scheduled appointments Take medications as needed Call/Return as needed Assessment: Denies SI,HI,AH,VH No sx of acute psychosis Agrees with plan of care Discharges on a three day notice of intent. Discharge Date/Time: 02/12/25 10:40
== END 2025-02-12 10:40 | disposition home or self-care (01) | DRG 751 ==
LOC: HO.ED 01-29 08:22 → HO.PM5 01-29 13:29
PROVIDERS: Emergency Medicine; Psychiatry & Neurology Psychiatry; Admitting Provider Psychiatry & Neurology Psychiatry; Emergency Provider Emergency Medicine Emergency Medical Services; Visit Provider Clinical Nurse Specialist Psychiatric/Mental Health, Adult
DX: F33.9 Major depressive disorder, recurrent, unspecified (principal); F10.239 Alcohol dependence with withdrawal, unspecified; F11.20 Opioid dependence, uncomplicated; F17.210 Nicotine dependence, cigarettes, uncomplicated; Z71.6 Tobacco abuse counseling; F19.10 Other psychoactive substance abuse, uncomplicated; F43.10 Post-traumatic stress disorder, unspecified; Z20.822 Contact with and (suspected) exposure to COVID-19; Z79.890 Hormone replacement therapy; Z79.899 Other long term (current) drug therapy
CPT/HCPCS: 0241U; 36415; 80051; 80053; 80061; 80143; 80179; 80307; 81003; 82607; 82746; 83036; 84439; 84443; 85025; 93005; 99285; S9485

== ENCOUNTER → 2025-01-28 23:08 | Outpatient (BNV) | payer OTHER, SELFPAY | PROVIDERS: Emergency Provider Emergency Medicine Emergency Medical Services; Visit Provider Internal Medicine Cardiovascular Disease | DX: R45.851 Suicidal ideations (principal); T40.411A Poisoning by fentanyl or fentanyl analogs, accidental (unintentional), initial encounter | CPT/HCPCS: 93010 ==

== ENCOUNTER → 2025-01-29 13:22 | Outpatient (BNV) | payer OTHER, SELFPAY | PROVIDERS: Admitting Provider Psychiatry & Neurology Psychiatry; Emergency Provider Emergency Medicine Emergency Medical Services; Visit Provider Clinical Nurse Specialist Psychiatric/Mental Health, Adult | DX: F33.2 Major depressive disorder, recurrent severe without psychotic features (principal); F10.20 Alcohol dependence, uncomplicated; F11.20 Opioid dependence, uncomplicated; F43.11 Post-traumatic stress disorder, acute | CPT/HCPCS: 90792; 99231; 99232 ==